=== PATIENT | male | born 1960 | race Caucasian/White ===

== ENCOUNTER 2018-01-21 13:05 | Observation (INO) | payer OTHER, SELFPAY ==
[2018-01-21] MEDS ORDERED: NA CHLORIDE 0.9% 1,000 ML ONE ×2 (13:59→15:37)
[2018-01-21] MEDS ORDERED: ALBUTEROL 2.5 MG/3 ML NEB SOL ONE (14:20)
[2018-01-21] MEDS ORDERED: METHYLPREDNISOLONE 125 MG INJ ONE (14:20)
[2018-01-21] MEDS ORDERED: AZITHROMYCIN 500 MG/250 ML BAG ONE (14:21)
[2018-01-21] MEDS ORDERED: CEFTRIAXONE/SWI 1gm 1 GM/10 ML SYR ONE ×2 (14:21→16:58)
[2018-01-21] MEDS ORDERED: FAMOTIDINE 20 MG/2 ML VIAL IV ONE (14:24)
[2018-01-21 14:32] LABS: Absolute Lymphocytes (CBC) 1.3 K/uL (0.7-4.9); Absolute Monocytes 1.4 K/uL (0.1-1.3); Absolute Neutrophil 8.1 K/uL (1.8-8.0); Basophils % 0.4 % (0-1.3); Eosinophils % 1.1 % (0-4.4); Hematocrit 43.9 % (39.6-49.0); Lymphocytes % 11.8 % (15.3-44.8); MCH 32.3 pg (27.0-35.0); MCV 92.5 fL (80-100); MPV 7.7 fL (7.6-11.3); Monocytes % 12.6 % (3.3-12.3); RBC Red Blood Cell Count 4.74 M/uL (4.33-5.43)
[2018-01-21 14:39] LABS: Protime INR 1.23
[2018-01-21 14:41] LABS: Potassium 4.2 mEq/L (3.6-5.0)
[2018-01-21 14:48] LABS: Bilirubin Direct 0.3 mg/dL (0-0.2); Bilirubin Total 1.5 mg/dL (0.3-1.2); Magnesium 1.7 mg/dL (1.8-2.5)
[2018-01-21 14:51] LABS: CKMB Creatine Kinase MB 4.8 ng/ml (0.3-4.0)
--- NOTE | 2018-01-21 15:01 | RAD REPORT ---
EXAM DESCRIPTION: RAD - Chest Single View - 01/21/2018 2:54 pm CLINICAL HISTORY: Chest pain. COMPARISON: 08/10/2017 FINDINGS: Portable technique limits examination quality. A minimal left pleural effusion is noted. Mild volume loss of the left lung is seen, similar to tab rative study. The heart is normal in size. No displaced fractures. IMPRESSION: Minimal left pleural.
--- NOTE | 2018-01-21 15:38 | EDPHYS ---
Physician Documentation [facility] Name: Ruslan Mclaughlin Age: 57 yrs Sex: Male : 1960 Arrival Date: 01/21/2018 Time: 13:12 Bed 23 Private MD: [facility] ED Physician Jason Mclaughlin HPI: 01/21 14:11 This 57 yrs old Male presents to ER via Ambulatory with complaints of huber Dizziness, Weakness, Vision Problem. 14:11 The patient presents with dizziness, generalized weakness, lightheadedness. Onset: The huber symptoms/episode began/occurred 3 day(s) ago. Context: occurred at an unknown location. Associated signs and symptoms: Pertinent positives: near-syncope. Severity of symptoms: At their worst the symptoms were mild moderate in the emergency department the symptoms are unchanged. Patient's baseline: Neuro: alert and fully oriented. The patient has not experienced similar symptoms in the past. Historical: - Allergies: 13:16 No Known Allergies; la1 - Home Meds: 16:50 metformin 1,000 mg oral tab 1 tab 2 times per day [Active]; lisinopril 20 mg Oral tab 1 tl3 tab once daily [Active]; Plavix 75 mg Oral tab 1 tab once daily [Active]; simvastatin 20 mg Oral tab 1 tab once daily [Active]; hydralazine 50 mg Oral tab 1 tab daily [Active]; Januvia 100 mg oral tab 1 tab once daily [Active]; Prilosec 40 mg Oral cpDR 1 cap once daily [Active]; - PMHx: 13:16 Diabetes - NIDDM; Hypertension; la1 - Immunization history:: Adult Immunizations up to date. - Social history:: Smoking status: Patient/guardian denies using tobacco, Patient uses alcohol, on a daily basis. - Family history:: not pertinent. ROS: 14:11 Constitutional: Negative for fever, chills, and weight loss, Eyes: Negative for injury, huber pain, redness, and discharge, ENT: Negative for injury, pain, and discharge, Neck: Negative for injury, pain, and swelling, Cardiovascular: Negative for chest pain, palpitations, and edema, Abdomen/GI: Negative for abdominal pain, nausea, vomiting, diarrhea, and constipation, Back: Negative for injury and pain, : Negative for injury, bleeding, discharge, and swelling, MS/Extremity: Negative for injury and deformity, Skin: Negative for injury, rash, and discoloration, Neuro: Negative for headache, weakness, numbness, tingling, and seizure, Psych: Negative for depression, anxiety, suicide ideation, homicidal ideation, and hallucinations, Allergy/Immunology: Negative for hives, rash, and allergies, Endocrine: Negative for neck swelling, polydipsia, polyuria, polyphagia, and marked weight changes. 14:11 Respiratory: Positive for cough, dyspnea on exertion, shortness of breath, wheezing, inspiratory, expiratory. 14:11 Abdomen/GI: Positive for 14:11 Abdomen/GI: Negative for abdominal pain, nausea and vomiting, black/tarry stool, rectal huber pain, rectal bleeding. Exam: 14:11 Constitutional: This is a well developed, well nourished patient who is awake, alert, huber and in no acute distress. Head/Face: Normocephalic, atraumatic. Eyes: Pupils equal round and reactive to light, extra-ocular motions intact. Lids and lashes normal. Conjunctiva and sclera are non-icteric and not injected. Cornea within normal limits. Periorbital areas with no swelling, redness, or edema. ENT: Nares patent. No nasal discharge, no septal abnormalities noted. Tympanic membranes are normal and external auditory canals are clear. Oropharynx with no redness, swelling, or masses, exudates, or evidence of obstruction, uvula midline. Mucous membranes moist. Neck: Trachea midline, no thyromegaly or masses palpated, and no cervical lymphadenopathy. Supple, full range of motion without nuchal rigidity, or vertebral point tenderness. No Meningismus. Chest/axilla: Normal chest wall appearance and motion. Nontender with no deformity. No lesions are appreciated. Cardiovascular: Regular rate and rhythm with a normal S1 and S2. No gallops, murmurs, or rubs. Normal PMI, no JVD. No pulse deficits. Abdomen/GI: Soft, non-tender, with normal bowel sounds. No distension or tympany. No guarding or rebound. No evidence of tenderness throughout. Back: No spinal tenderness. No costovertebral tenderness. Full range of motion. Male : Normal genitalia with no discharge or lesions. Skin: Warm, dry with normal turgor. Normal color with no rashes, no lesions, and no evidence of cellulitis. MS/ Extremity: Pulses equal, no cyanosis. Neurovascular intact. Full, normal range of motion. Neuro: Awake and alert, GCS 15, oriented to person, place, time, and situation. Cranial nerves II-XII grossly intact. Motor strength 5/5 in all extremities. Sensory grossly intact. Cerebellar exam normal. Normal gait. Psych: Awake, alert, with orientation to person, place and time. Behavior, mood, and affect are within normal limits. 14:11 Respiratory: mild respiratory distress is noted, Respirations: normal, Breath sounds: decreased breath sounds, rhonchi, wheezing: expiratory Vital Signs: 13:16 Pulse 92; Resp 16; Temp 98.4; Pulse Ox 100% on R/A; Weight 81.65 kg; Height 5 ft. 6 in. la1 (167.64 cm); 13:17 BP 91 / 66; la1 13:39 BP 109 / 73 Supine; Pulse 114; Pulse Ox 36% on R/A; tl3 13:39 BP 100 / 70 Sitting; Pulse 99; Pulse Ox 97% on R/A; tl3 13:39 BP 90 / 61 Standing; Pulse 63; Pulse Ox 97% on R/A; tl3 13:58 BP 86 / 82; Pulse 97; Resp 18; Pulse Ox 98% ; tl3 15:00 BP 98 / 72; Pulse 84; Resp 23; Pulse Ox 100% ; tl3 16:02 BP 106 / 71; Pulse 98; Resp 20; Pulse Ox 98% on R/A; tl3 13:16 Body Mass Index 29.05 (81.65 kg, 167.64 cm) la1 MDM: 13:49 Patient medically screened. [facility] 14:14 Data reviewed: vital signs, nurses notes, lab test result(s), EKG, radiologic studies, huber plain films. 01/21 14:11 Order name: Basic Metabolic Panel [facility] 01/21 14:11 Order name: BNP [facility] 01/21 14:11 Order name: CBC with Diff [facility] 01/21 14:11 Order name: Ckmb [facility] 01/21 14:11 Order name: CPK; Complete Time: 15:33 [facility] 01/21 14:11 Order name: LFT's; Complete Time: 15:33 [facility] 01/21 14:11 Order name: Magnesium; Complete Time: 15:33 [facility] 01/21 14:11 Order name: PT-INR; Complete Time: 15:33 [facility] 01/21 14:11 Order name: Ptt, Activated; Complete Time: 15:33 [facility] 01/21 14:11 Order name: Troponin (emerg Dept Use Only); Complete Time: 15:33 [facility] 01/21 14:11 Order name: Blood Culture Adult (2) [facility] 01/21 14:11 Order name: Procalcitonin; Complete Time: 15:33 [facility] 01/21 14:11 Order name: Lactate; Complete Time: 15:33 [facility] 01/21 14:12 Order name: Basic Metabolic Panel; Complete Time: 15:33 [facility] 01/21 14:11 Order name: XRAY Chest (1 view); Complete Time: 15:33 [facility] 01/21 14:11 Order name: EKG; Complete Time: 14:12 [facility] 01/21 14:12 Order name: BNP B-Type Natriuretic Peptide; Complete Time: 15:33 [facility] 01/21 14:12 Order name: CBC with Automated Diff; Complete Time: 15:33 [facility] 01/21 14:12 Order name: CKMB Creatine Kinase MB; Complete Time: 15:33 [facility] 01/21 14:29 Order name: TSH 01/21 15:43 Order name: Echo with Doppler [facility] 01/21 14:11 Order name: Cardiac monitoring; Complete Time: 14:52 [facility] 01/21 14:11 Order name: EKG - Nurse/Tech; Complete Time: 14:52 [facility] 01/21 14:11 Order name: IV Saline Lock; Complete Time: 14:52 [facility] 01/21 14:11 Order name: Labs collected and sent; Complete Time: 17:30 [facility] 01/21 14:11 Order name: O2 Per Protocol; Complete Time: 17:30 [facility] 01/21 14:11 Order name: O2 Sat Monitoring; Complete Time: 17:30 [facility] Administered Medications: 14:10 Drug: NS 0.9% 1000 ml Route: IV; Rate: 1 bolus; Site: right antecubital; Delivery: tl3 Primary tubing; 15:47 Follow up: IV Status: Completed infusion; IV Intake: 1000ml tl3 14:20 Drug: Pepcid 20 mg Route: IVP; Infused Over: 3 mins; Site: right antecubital; tl3 15:44 Follow up: Response: No adverse reaction tl3 14:25 Drug: SOLU-Medrol 125 mg Route: IVP; Infused Over: 3 mins; Site: right antecubital; tl3 15:45 Follow up: Response: No adverse reaction tl3 14:45 Drug: Rocephin - (cefTRIAXone) 2 grams {Note: IVP over 5 minutes.} Route: IVPB; Infused tl3 Over: 30 mins; Site: right antecubital; 14:50 Follow up: Response: No adverse reaction; IV Status: Completed infusion; IV Intake: [id number] 14:56 Drug: Albuterol - atroVENT (3:1) (2.5 mg - 0.5 mg) 3 ml Route: Nebulizer; tl3 15:44 Follow up: Response: No adverse reaction tl3 14:58 Drug: Zithromax 500 mg Route: IVPB; Infused Over: 1 hrs; Site: right antecubital; tl3 Delivery: Primary tubing; 15:55 Follow up: IV Status: Completed infusion; IV Intake: 500ml tl3 15:43 Drug: NS 0.9% 1000 ml Route: IV; Rate: 125 ml/hr; Site: right antecubital; tl3 15:59 Drug: Magnesium Sulfate 1 grams Route: IVPB; Infused Over: 1 hrs; Site: right tl3 antecubital; Delivery: Primary tubing; 17:29 Follow up: IV Status: Completed infusion; IV Intake: 100ml tl3 16:01 Not Given (Duplicate Order): NS 0.9% 1000 ml IV at 1 bolus Per protocol; 1000 mL bolus tl3 Point of Care Testing: Blood Glucose: 13:39 Blood Glucose: 146 mg/dL; tl3 Ranges: Critical Glucose Levels:Adult <50 mg/dl or >400 mg/dl <40 mg/dl or >180 mg/dl Disposition: 01/21/18 15:37 Hospitalization ordered by Anette Simpson for Inpatient Admission. Preliminary diagnosis are Weakness, Chronic obstructive pulmonary disease with (acute) exacerbation, Hypomagnesemia, Syncope and collapse - near, Type 2 diabetes mellitus, Pleural effusion in conditions classified elsewhere, Unspecified kidney failure. - Bed requested for Telemetry/MedSurg (Inpatient). - Status is Inpatient Admission. tl3 - Condition is Stable. - Problem is new. - Symptoms have improved. UTI on Admission? No Signatures: Dispatcher [employer] Jason Albert MD MD cha Attema, Lee RN RN la1 Lorraine Gifford RN RN tl3 Izzy Ching Corrections: (The following items were deleted from the chart) 16:50 16:05 Home Meds: unkown BP medication; tl3 tl3 16:50 16:05 Home Meds: Metformin Oral; tl3 tl3
--- NOTE | 2018-01-21 15:38 | ER ---
Nurse's Notes [facility] Name: Ruslan Mclaughlin Age: 57 yrs Sex: Male : 1960 Arrival Date: 01/21/2018 Time: 13:12 Bed 23 Private MD: Dontae Simpson Diagnosis: Weakness;Chronic obstructive pulmonary disease with (acute) exacerbation;Hypomagnesemia;Syncope and collapse-near;Type 2 diabetes mellitus;Pleural effusion in conditions classified elsewhere;Unspecified kidney failure Presentation: 01/21 13:15 Presenting complaint: Patient states: Fatigue for the last 3 days, dizziness and la1 blurred vision upon standing. No focal neurological deficits noted. Transition of care: patient was not received from another setting of care. Onset of symptoms was January 21, 2018. Initial Sepsis Screen: Does the patient meet any 2 criteria? No. Patient's initial sepsis screen is negative. Does the patient have a suspected source of infection? No. Patient's initial sepsis screen is negative. Care prior to arrival: None. 13:15 Method Of Arrival: Ambulatory la1 13:15 Acuity: GONZALO 2 la1 Historical: - Allergies: 13:16 No Known Allergies; la1 - Home Meds: 16:50 metformin 1,000 mg oral tab 1 tab 2 times per day [Active]; lisinopril 20 mg Oral tab 1 tl3 tab once daily [Active]; Plavix 75 mg Oral tab 1 tab once daily [Active]; simvastatin 20 mg Oral tab 1 tab once daily [Active]; hydralazine 50 mg Oral tab 1 tab daily [Active]; Januvia 100 mg oral tab 1 tab once daily [Active]; Prilosec 40 mg Oral cpDR 1 cap once daily [Active]; - PMHx: 13:16 Diabetes - NIDDM; Hypertension; la1 - Immunization history:: Adult Immunizations up to date. - Social history:: Smoking status: Patient/guardian denies using tobacco, Patient uses alcohol, on a daily basis. - Family history:: not pertinent. Screenin:39 Abuse screen: Denies threats or abuse. Nutritional screening: No deficits noted. tl3 Tuberculosis screening: No symptoms or risk factors identified. Fall Risk None identified. Assessment: 13:37 General: Appears uncomfortable, slender, well groomed, well developed, well nourished, tl3 Behavior is calm, cooperative, appropriate for age. Pain: Denies pain. Neuro: Level of Consciousness is awake, alert, obeys commands, Oriented to person, place, time, situation, Appropriate for age. Neuro: Reports dizziness, weakness since Tuesday. Cardiovascular: Heart tones S1 S2 present Capillary refill < 3 seconds in bilateral fingers. Respiratory: Airway is patent Trachea midline Respiratory effort is even, unlabored, Respiratory pattern is regular, symmetrical. GI: No signs and/or symptoms were reported involving the gastrointestinal system. : No signs and/or symptoms were reported regarding the genitourinary system. EENT: No signs and/or symptoms were reported regarding the EENT system. Derm: No signs and/or symptoms reported regarding the dermatologic system. Musculoskeletal: No signs and/or symptoms reported regarding the musculoskeletal system. 13:37 GI: Abdomen is round non-distended, Bowel sounds present X 4 quads. hyperactive in tl3 right upper quadrant, left upper quadrant, right lower quadrant and left lower quadrant. 15:00 Reassessment: No changes from previously documented assessment. Patient and/or family tl3 updated on plan of care and expected duration. Pain level reassessed. Patient is alert, oriented x 3, equal unlabored respirations, skin warm/dry/pink. pt lying quietly, in no acute distress, continuing to monitor BP. 16:02 Reassessment: Patient appears in no apparent distress at this time. No changes from tl3 previously documented assessment. Patient and/or family updated on plan of care and expected duration. Pain level reassessed. Patient is alert, oriented x 3, equal unlabored respirations, skin warm/dry/pink. pt resting states that he feels a little better. 16:05 Reassessment: Dr Simpson at bedside discussing POC with pt. tl3 Vital Signs: 13:16 Pulse 92; Resp 16; Temp 98.4; Pulse Ox 100% on R/A; Weight 81.65 kg; Height 5 ft. 6 in. la1 (167.64 cm); 13:17 BP 91 / 66; la1 13:39 BP 109 / 73 Supine; Pulse 114; Pulse Ox 36% on R/A; tl3 13:39 BP 100 / 70 Sitting; Pulse 99; Pulse Ox 97% on R/A; tl3 13:39 BP 90 / 61 Standing; Pulse 63; Pulse Ox 97% on R/A; tl3 13:58 BP 86 / 82; Pulse 97; Resp 18; Pulse Ox 98% ; tl3 15:00 BP 98 / 72; Pulse 84; Resp 23; Pulse Ox 100% ; tl3 16:02 BP 106 / 71; Pulse 98; Resp 20; Pulse Ox 98% on R/A; tl3 13:16 Body Mass Index 29.05 (81.65 kg, 167.64 cm) la1 ED Course: 13:12 Patient arrived in ED. mr 13:12 Dontae Simpson, DO is Private Physician. mr 13:15 Triage completed. la1 13:16 Arm band placed on right wrist. la1 13:37 Lorraine Gifford, RN is Primary Nurse. tl3 13:39 Patient has correct armband on for positive identification. Bed in low position. Call tl3 light in reach. Side rails up X 1. 13:39 No provider procedures requiring assistance completed. Inserted saline lock: 20 gauge tl3 in right antecubital area, using aseptic technique. 13:49 Jason Mclaughlin MD is Attending Physician. huber 13:56 equipment monitor phototypesetting on. Pulse ox on. NIBP on. tl3 14:54 X-ray completed. Portable x-ray completed in exam room. Patient tolerated procedure kp1 well. 14:55 XRAY Chest (1 view) In Process Unspecified. EDMS 15:36 Anette Simpson MD is Hospitalizing Provider. huber 17:31 Patient admitted, IV remains in place. tl3 Administered Medications: 14:10 Drug: NS 0.9% 1000 ml Route: IV; Rate: 1 bolus; Site: right antecubital; Delivery: tl3 Primary tubing; 15:47 Follow up: IV Status: Completed infusion; IV Intake: 1000ml tl3 14:20 Drug: Pepcid 20 mg Route: IVP; Infused Over: 3 mins; Site: right antecubital; tl3 15:44 Follow up: Response: No adverse reaction tl3 14:25 Drug: SOLU-Medrol 125 mg Route: IVP; Infused Over: 3 mins; Site: right antecubital; tl3 15:45 Follow up: Response: No adverse reaction tl3 14:45 Drug: Rocephin - (cefTRIAXone) 2 grams {Note: IVP over 5 minutes.} Route: IVPB; Infused tl3 Over: 30 mins; Site: right antecubital; 14:50 Follow up: Response: No adverse reaction; IV Status: Completed infusion; IV Intake: [id number] 14:56 Drug: Albuterol - atroVENT (3:1) (2.5 mg - 0.5 mg) 3 ml Route: Nebulizer; tl3 15:44 Follow up: Response: No adverse reaction tl3 14:58 Drug: Zithromax 500 mg Route: IVPB; Infused Over: 1 hrs; Site: right antecubital; tl3 Delivery: Primary tubing; 15:55 Follow up: IV Status: Completed infusion; IV Intake: 500ml tl3 15:43 Drug: NS 0.9% 1000 ml Route: IV; Rate: 125 ml/hr; Site: right antecubital; tl3 15:59 Drug: Magnesium Sulfate 1 grams Route: IVPB; Infused Over: 1 hrs; Site: right tl3 antecubital; Delivery: Primary tubing; 17:29 Follow up: IV Status: Completed infusion; IV Intake: 100ml tl3 16:01 Not Given (Duplicate Order): NS 0.9% 1000 ml IV at 1 bolus Per protocol; 1000 mL bolus tl3 Point of Care Testing: Blood Glucose: 13:39 Blood Glucose: 146 mg/dL; tl3 Ranges: Intake: 14:50 IV: 20ml; Total: 20ml. tl3 15:47 IV: 1000ml; Total: 1020ml. tl3 15:55 IV: 500ml; Total: 1520ml. tl3 17:29 IV: 100ml; Total: 1620ml. tl3 Outcome: 15:37 Decision to Hospitalize by Provider. huber 17:26 Patient left the ED. tl3 17:30 Admitted to Tele accompanied by tech, via wheelchair, with chart, Report called to Jany Montano RN 17:30 Condition: stable 17:30 Instructed on the need for admit. Signatures: Dispatcher [employer] Jason Albert MD MD cha Rivera, Maria mr Attema, Lee, RN RN la1 Leslie Dailey kp1 Lorraien Gifford RN RN tl3 Corrections: (The following items were deleted from the chart) 13:17 13:15 Acuity: GONZALO 3 la1 la1 14:57 14:25 SOLU-Medrol 125 mg IVP in left antecubital over 3 mins tl3 tl3 14:58 14:20 Pepcid 20 mg IVP in left antecubital over 3 mins tl3 tl3 16:01 15:45 Response: No adverse reaction tl3 tl3 16:50 16:05 Home Meds: unkown BP medication; tl3 tl3 16:50 16:05 Home Meds: Metformin Oral; tl3 tl3
[2018-01-21] MEDS ORDERED: MAGNESIUM SULFATE 1 gm IVPB 1 GM/100 ML BAG IV ONE (15:55)
[2018-01-21] MEDS ORDERED: ACETAMINOPHEN 500 MG TAB PO PRN (16:12)
[2018-01-21] MEDS ORDERED: ONDANSETRON 4 MG/2 ML VIAL IV PRN (16:12)
[2018-01-21] MEDS: INSULIN -REGULAR HUMAN 50 UNIT/0.5 ML ML SQ SCH ×2 (16:30→21:00)
--- NOTE | 2018-01-21 17:33 | P.HP ---
Certification for Inpatient Patient admitted to: Inpatient With expected LOS: <2 Midnights Patient will require the following post-hospital care: None Practitioner: I am a practitioner with admitting privileges, knowledge of patient current condition, hospital course, and medical plan of care. Services: Services provided to patient in accordance with Admission requirements found in Title 42 Section 412.3 of the Code of Federal Regulations Patient History Date of Service: 01/21/18 Primary Care Provider: Dr Simpson Reason for admission: Weakness History of Present Illness: This is a 57-year-old male with significant past medical history of diabetes type 2, hypertension, CAD, alcohol abuse who presented to the ED complaining of weakness that has been going on for about 3 days. Patient stated that his weakness started about 3 days and has gotten progressively worse where today he was so weak that he felt dizzy and almost lost his balance and had a fall. Patient stated that he also had some blurred vision and thus he got into the ER. Patient denies having any fever chills nausea vomiting shortness of breath. Patient had similar episode in the past where he was admitted in 2014 and was found to have generalized weak weakness which resolved after IV fluids and electrolyte replacement and then patient was discharged home. Patient does have a primary care provider Dr. Simpson who he sees outside and states that he has been referred over to a fruit press operator due to a blockage in his left side artery. Allergies No Known Allergies Allergy (Unverified 08/12/16 20:08) Home Medications: Aspirin [Aspirin EC 81 MG] 81 mg PO DAILY #90 tablet. 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 - Family History Mother -: Diabetes, Cancer (Lung cancer) Sister -: Diabetes Father -: Liver disease - Social History Alcohol use: Yes CD- Drugs: Yes Caffeine use: No Review of Systems General: As per HPI Physical Examination - Physical Exam General: Alert, In no apparent distress, Oriented x3, Cachectic HEENT: Atraumatic Neck: Supple Respiratory: Clear to auscultation bilaterally, Normal air movement Cardiovascular: Normal S1 S2, Irregular heart rate/rhythm Gastrointestinal: Normal bowel sounds, Soft and benign, Non-distended, No tenderness Musculoskeletal: No tenderness Integumentary: No rashes Neurological: Normal speech, Normal tone, Abnormal gait, Abnormal strength Lymphatics: No axilla or inguinal lymphadenopathy - Studies Laboratory Data (last 24 hrs) 01/21/18 14:00: PT 14.6 H, INR 1.23, APTT 27.7 01/21/18 14:00: WBC 11.0 H, Hgb 15.3, Hct 43.9, Plt Count 223 01/21/18 14:00: B-Natriuretic Peptide 66 01/21/18 14:00: Sodium 132 L, Potassium 4.2, BUN 27 H, Creatinine 1.51 H, Glucose 153 H, Magnesium 1.7 L, Total Bilirubin 1.5 H, AST 31, ALT 36, Alkaline Phosphatase 59 Assessment and Plan - Problems (Diagnosis) (1) Generalized weakness Current Visit: Yes Status: Acute Plan: Generalized Weakness that is progressively getting worse. Most likely 2.2 to alcohol abuse vs Afib -PT consulted -Fall precautions -Repeat Lab work in AM (2) Afib Current Visit: Yes Status: Acute Plan: ? New onset Afib -Started on Metoprolol 12.5 BID given the low BP in the ER -Currently on ASA and plavix. High risk for falls due to weakness and alcohol abuse. Will continue on ASA for now. -ECHO and cardiology consulted. Qualifiers: Atrial fibrillation type: paroxysmal Qualified Code(s): I48.0 - Paroxysmal atrial fibrillation (3) Alcohol use Onset Date: 08/13/16 Current Visit: No Status: Chronic Plan: Last drink Last night. Drink 2 pack of 6 a day -Ativan PRN for WD (4) ARF (acute renal failure) Current Visit: Yes Status: Acute Plan: ARF with elevated BUN/CR most likely 2.2 to dehydration -IV fluids -Avoid nephrotoxic agent Qualifiers: Acute renal failure type: unspecified Qualified Code(s): N17.9 - Acute kidney failure, unspecified (5) Diabetes mellitus Onset Date: 08/13/16 Current Visit: No Status: Chronic Plan: ISs Qualifiers: Diabetes mellitus type: type 2 Diabetes mellitus senior care insulin use: without roasterman use Diabetes mellitus complication status: without complication Qualified Code(s): E11.9 - Type 2 diabetes mellitus without complications (6) Hypertension Onset Date: 08/13/16 Current Visit: No Status: Chronic Qualifiers: Hypertension type: essential hypertension Qualified Code(s): I10 - Essential (primary) hypertension Discharge Plan: Home Plan to discharge in: 48 Hours - Advance Directives Does patient have a Living Will: No Does patient have a Durable POA for Healthcare: No - Code Status/Comfort Care Code Status Assessed: Yes Critical Care: No
[2018-01-21 18:02] VITALS: BMI 28.3
[2018-01-21] MEDS: NA CHLORIDE 0.9% 1,000 ML IV SCH (18:03)
[2018-01-21] MEDS: METOPROLOL TAR 25 MG TAB PO SCH (18:30)
[2018-01-21] MEDS ORDERED: LISINOPRIL 20 MG TAB PO SCH (21:00)
[2018-01-21 21:31] LABS: Urine Appearance CLEAR; Urine Bilirubin NEGATIVE (NEG); Urine Blood NEGATIVE (NEG); Urine Color YELLOW; Urine Glucose NEGATIVE (NEG); Urine Protein TRACE (NEG); Urine Urobilinogen 0.2 mg/dL (0.2-1.0); Urine pH 5.5 (5.0-7.0)
[2018-01-21 21:32] LABS: Urine Microscopic Reflex ORDER UMIC
[2018-01-21 21:52] LABS: Urine Bacteria <20 /HPF (NONE SEEN); Urine Culture Reflex Order NOT NEEDED; Urine RBC <5 /HPF (NONE SEEN)
[2018-01-21] MEDS: ATORVASTATIN 10 MG TAB PO SCH (21:55)
[2018-01-21] MEDS: HYDRALAZINE HCL 25 MG TABLET PO SCH (21:55)
[2018-01-22] MEDS: NA CHLORIDE 0.9% 1,000 ML IV SCH ×3 (03:51→23:00)
[2018-01-22 05:56] LABS: Absolute Lymphocytes (CBC) 0.5 K/uL (0.7-4.9); Absolute Monocytes 0.5 K/uL (0.1-1.3); Absolute Neutrophil 3.4 K/uL (1.8-8.0); Basophils % 0.1 % (0-1.3); Eosinophils % 0.1 % (0-4.4); Hematocrit 38.8 % (39.6-49.0); Lymphocytes % 11.5 % (15.3-44.8); MCH 31.8 pg (27.0-35.0); MCV 93.8 fL (80-100); MPV 8.1 fL (7.6-11.3); Monocytes % 11.6 % (3.3-12.3); RBC Red Blood Cell Count 4.14 M/uL (4.33-5.43)
[2018-01-22 06:07] LABS: Albumin 2.9 g/dL (3.2-5.5); Bilirubin Total 0.7 mg/dL (0.3-1.2); Magnesium 1.9 mg/dL (1.8-2.5); Phosphorus 2.6 mg/dL (2.5-4.3); Potassium 4.5 mEq/L (3.6-5.0); Protein, Total 6.2 g/dL (6.0-8.3)
[2018-01-22] MEDS: METOPROLOL TAR 25 MG TAB PO SCH ×2 (06:36→17:52)
[2018-01-22] MEDS: INSULIN -REGULAR HUMAN 50 UNIT/0.5 ML ML SQ SCH ×4 (07:30→21:00)
[2018-01-22] MEDS ORDERED: CEFTRIAXONE/SWI 1gm 1 GM/10 ML SYR IV SCH (09:00)
[2018-01-22] MEDS ORDERED: CEFTRIAXONE 1 GM/NS 50 ML 1 GM/50 ML BAG IV SCH (09:00)
[2018-01-22] MEDS: ASPIRIN EC 81 MG TAB PO SCH (09:14)
[2018-01-22] MEDS: HYDRALAZINE HCL 25 MG TABLET PO SCH ×2 (09:14→20:45)
[2018-01-22] MEDS: CLOPIDOGREL 75 MG TABLET PO SCH (09:14)
[2018-01-22] MEDS: PANTOPRAZOLE 40MG TABLET PO SCH (09:14)
--- NOTE | 2018-01-22 09:51 | RAD REPORT ---
EXAM DESCRIPTION: US - Liver Only - 01/22/2018 9:40 am CLINICAL HISTORY: Elevated bilirubin COMPARISON: None. TECHNIQUE: Sonographic evaluation of the right upper quadrant was performed as a dedicated liver ult rasound study. FINDINGS: Liver is approximately 14 cm in maximum dimension. No capsular nodularity or focal liver l esion identifiable. Liver echogenicity is within range of normal. No significant fatty infiltration i s identifiable. No intrahepatic biliary dilatation. The gallbladder and common bile duct show no susp icious finding. IMPRESSION: Liver ultrasound showing no significant or suspicious finding.
--- NOTE | 2018-01-22 10:53 | P.PN ---
Subjective Date of Service: 01/22/18 Primary Care Provider: Dr Simpson Chief Complaint: Weakness Pt seen and examined at bedside with RN. Chart reviewed. Case D/W with cardiology. No c/o overnight. states he feels much better than before Review of Systems General: As per HPI Physical Examination - Vital Signs Temperature: 97.8 F Blood Pressure: 125/79 Pulse: 63 Respirations: 18 Pulse Ox (%): 93 - Physical Exam General: Alert, In no apparent distress HEENT: Atraumatic, PERRLA, EOMI Neck: Supple, JVD not distended Respiratory: Clear to auscultation bilaterally, Normal air movement Cardiovascular: Regular rate/rhythm, Normal S1 S2 Gastrointestinal: Normal bowel sounds, No tenderness Musculoskeletal: No tenderness Integumentary: No rashes Neurological: Normal speech, Normal tone, Normal affect Lymphatics: No axilla or inguinal lymphadenopathy - Studies Laboratory Data (last 24 hrs) 01/21/18 14:00: PT 14.6 H, INR 1.23, APTT 27.7 01/21/18 14:00: WBC 11.0 H, Hgb 15.3, Hct 43.9, Plt Count 223 01/21/18 14:00: B-Natriuretic Peptide 66 01/21/18 14:00: Sodium 132 L, Potassium 4.2, BUN 27 H, Creatinine 1.51 H, Glucose 153 H, Magnesium 1.7 L, Total Bilirubin 1.5 H, AST 31, ALT 36, Alkaline Phosphatase 59 Medications List Reviewed: Yes Assessment & Plan - Problems (Diagnosis) (1) Generalized weakness Current Visit: Yes Status: Acute Plan: Generalized Weakness that is progressively getting worse. Most likely 2.2 to alcohol abuse vs Afib -PT consulted -Fall precautions -Repeat Lab work in AM (2) Afib Current Visit: Yes Status: Acute Plan: New onset Afib -Started on Metoprolol 12.5 BID given the low BP in the ER -Currently on ASA and plavix. High risk for falls due to weakness and alcohol abuse. -ECHO Pending -Cardiology consulted. Appreciate Reccs -Stress test -Carotid U/S -ECHO -Low dose BB and ASA/Plavix for now till echo and stress test. Possible switch to xarelto after. Qualifiers: Atrial fibrillation type: paroxysmal Qualified Code(s): I48.0 - Paroxysmal atrial fibrillation (3) Alcohol use Onset Date: 08/13/16 Current Visit: No Status: Chronic Plan: Last drink Last night. Drink 2 pack of 6 a day -Ativan PRN for WD (4) ARF (acute renal failure) Current Visit: Yes Status: Acute Plan: ARF with elevated BUN/CR most likely 2.2 to dehydration. Improved now -IV fluids -Avoid nephrotoxic agent Qualifiers: Acute renal failure type: unspecified Qualified Code(s): N17.9 - Acute kidney failure, unspecified (5) Diabetes mellitus Onset Date: 08/13/16 Current Visit: No Status: Chronic Plan: ISs Qualifiers: Diabetes mellitus type: type 2 Diabetes mellitus computer terminal operator insulin use: without computer terminal operator use Diabetes mellitus complication status: without complication Qualified Code(s): E11.9 - Type 2 diabetes mellitus without complications (6) Hypertension Onset Date: 08/13/16 Current Visit: No Status: Chronic Qualifiers: Hypertension type: essential hypertension Qualified Code(s): I10 - Essential (primary) hypertension
--- NOTE | 2018-01-22 15:22 | RAD REPORT ---
EXAM DESCRIPTION: INOCENTE - HUNTER - 01/22/2018 2:41 pm CLINICAL HISTORY: Carotid stenosis COMPARISON: Carotid ultrasound July 2016 TECHNIQUE: Real-time sonographic evaluation of both carotid systems was performed. Doppler interroga tion was performed with waveform tracing bilaterally. FINDINGS: Normal high resistance waveforms are noted in both external carotid arteries. The common c arotid arteries and internal carotid arteries show normal low resistance waveforms. No blood flow demonstrated in the right internal carotid artery. Occlusion or near occlusion has been previously detailed. Left common and internal carotid arteries show mild plaquing changes with no si gnificant luminal narrowing. Peak systolic and end diastolic velocity values and the ICA/CCA ratios a re in the non-hemodynamically significant range. Antegrade flow seen in both vertebral arteries. Velocity values and ratios were recorded and are retained in the patient's imaging records. IMPRESSION: Occluded right internal carotid artery matching the 2016 study. Elsewhere there no significant atherosclerotic change or luminal narrowing. No evidence of a left-sided hemodynamically significant stenosis.
--- NOTE | 2018-01-22 16:10 | EKG ---
Test Date: 2018-01-21 Test Time: 14:27:21 Secretary To The Vice President: JOEL MEASUREMENT RESULTS: Intervals: Rate: 84 ND: QRSD: 100 QT: 378 QTc: 446 [place]: P: ND: QRS: -20 T: 70 INTERPRETIVE STATEMENTS: Atrial fibrillation Abnormal ECG Compared to ECG 01/21/2018 14:23:27 Left ventricular hypertrophy no longer present ST (T wave) deviation no longer present Myocardial infarct finding no longer present Electronically Signed On 01-22-18 16:10:07 CDT by Dennys Belle
--- NOTE | 2018-01-22 16:11 | EKG ---
Test Date: 2018-01-21 Test Time: 14:23:27 Classics Professor: JOEL MEASUREMENT RESULTS: Intervals: Rate: 83 KS: QRSD: 90 QT: 374 QTc: 439 [place]: P: KS: QRS: -24 T: -25 INTERPRETIVE STATEMENTS: Atrial fibrillation with a competing junctional pacemaker Voltage criteria for left ventricular hypertrophy Abnormal ECG Compared to ECG 08/12/2016 17:09:28 Left ventricular hypertrophy now present Sinus rhythm no longer present Left-axis deviation no longer present Electronically Signed On 01-22-18 16:11:10 CDT by Dennys Belle
[2018-01-22 18:13] VITALS: O2SAT 97
[2018-01-22] MEDS: ATORVASTATIN 10 MG TAB PO SCH (20:45)
[2018-01-23] MEDS: NA CHLORIDE 0.9% 1,000 ML IV SCH ×2 (00:15→10:57)
--- NOTE | 2018-01-23 00:42 | CON ---
Date of Consultation: 01/22/2018 Reason For Consultation: Atrial fibrillation, near-syncope, dizziness, and weakness. History Of Present Illness: Mr. Mclaughlin is a 57-year-old male who has had a history of diabetes, hy pertension, dyslipidemia, gastroesophageal reflux disease. Apparently, had a history of cerebrovascu lar disease. Dr. Alonso Simpson has been following and has recommended that we see him as an outpatien t. He came in with near syncope, dizzy, weak, had a lot of blurry vision, has had recent fevers and chills. He was noted to be in paroxysmal atrial fibrillation. He is asymptomatic now after hydratio n. He is in normal rhythm. Past Medical History: Otherwise stated earlier. Allergies: NONE. Review of Systems: Negative. Social History: Negative. Family History: Noncontributory. Medications: Aspirin, Protonix, Plavix, Lipitor, hydralazine, lisinopril, and metformin. Physical Examination: Vital Signs: Stable, afebrile. Sinus rhythm. No complaint. HEENT: Negative. Neck: Supple with no bruit. Chest: Clear to auscultation and percussion. Cardiac: Reveals a regular rhythm and rate without any murmurs, gallops, or rubs. Abdomen: Benign. Extremities: Reveal no clubbing, cyanosis, or edema. Imaging: His EKG initially showed atrial fibrillation. Laboratory Data: Mag was 1.5, blood glucose 230. Creatinine is 1.5, now is 1.0 after hydration. Impression And Plan: Mr. Mclaughlin may have had a slight viral syndrome with some fevers and chills a nd may have gotten dehydrated. His creatinine is 1.5, it is now 1.0, that may have dropped his blood pressure, and caused some atrial fibrillation, and has near syncope. He has had a history of cerebr ovascular disease by some carotid Doppler that is unavailable to me and I think he needs to have an e chocardiogram and Lexiscan and a carotid Doppler to evaluate all his symptoms. His blood pressure is well controlled. His dyslipidemia is well controlled. His gastroesophageal reflux disease is well controlled. His blood glucose is 230. He is on metformin. We may have to change his hydralazine an d lisinopril and maybe put him on a low-dose beta-rowan instead of one of those medications. I danisha l discuss the case further with Dr. Simpson after the testing is done. ADENIKE/LISA Voice ID: [id number] Report ID: [id number]
[2018-01-23] MEDS: METOPROLOL TAR 25 MG TAB PO SCH (06:00)
[2018-01-23 06:45] LABS: Absolute Lymphocytes (CBC) 0.8 K/uL (0.7-4.9); Absolute Monocytes 0.6 K/uL (0.1-1.3); Absolute Neutrophil 5.4 K/uL (1.8-8.0); Basophils % 0.3 % (0-1.3); Eosinophils % 3.6 % (0-4.4); Hematocrit 35.7 % (39.6-49.0); Lymphocytes % 10.8 % (15.3-44.8); MCH 32.6 pg (27.0-35.0); MCV 92.8 fL (80-100); MPV 7.3 fL (7.6-11.3); Monocytes % 8.7 % (3.3-12.3); RBC Red Blood Cell Count 3.85 M/uL (4.33-5.43)
[2018-01-23] MEDS: INSULIN -REGULAR HUMAN 50 UNIT/0.5 ML ML SQ SCH ×2 (07:30→11:30)
[2018-01-23 07:37] LABS: Albumin 3.1 g/dL (3.2-5.5); Bilirubin Total 0.7 mg/dL (0.3-1.2); Potassium 4.3 mEq/L (3.6-5.0); Protein, Total 6.2 g/dL (6.0-8.3)
[2018-01-23] MEDS ORDERED: REGADENOSON 0.4 MG/5 ML SYR IV ONE (08:38)
[2018-01-23] MEDS: HYDRALAZINE HCL 25 MG TABLET PO SCH (09:00)
--- NOTE | 2018-01-23 10:06 | RAD REPORT ---
EXAM DESCRIPTION: RAD - Chest Pa And Lat (2 Views) - 01/23/2018 8:38 am CLINICAL HISTORY: Chest pain, shortness of breath COMPARISON: January 21 TECHNIQUE: PA and lateral views of the chest were obtained. FINDINGS: The lungs are underinflated. There is patchy opacification in the mid and upper left lung field suspicious for a left upper lobe pneumonia. No other acute lung parenchymal finding. Heart si ze is normal and central vasculature is within normal limits. No pleural effusion or pneumothorax se en. No acute bony finding noted. No aortic abnormality. IMPRESSION: Small or mild upper lobe pneumonia findings. Continued follow-up is needed to assure co mplete clearing. If the patient has no findings for pneumonia, CT chest imaging may be needed to evaluate for possible mass.
--- NOTE | 2018-01-23 10:49 | RAD REPORT ---
EXAM DESCRIPTION: NM - Rest Stress Cardiac Imaging - 01/23/2018 10:29 am CLINICAL HISTORY: Chest pain COMPARISON: None. TECHNIQUE: The patient was administered 11 mCi of Tc 99m Sestamibi prior to resting SPECT imaging of the heart. The patient was then administered 30.1 mCi of Tc 99m Sestamibi following exercise or phar macologic stress. Multiplanar SPECT images were reviewed. FINDINGS: The end diastolic volume is 82 ml, the end systolic volume is 49 ml, and the ejection frac tion is 41 %. Large fixed defect is present along the inferior wall from base to apex favored to be scarring or att enuation artifact. No stress-induced ischemic changes are identifiable. No other areas of scarring. IMPRESSION: No stress-induced ischemia. Large fixed defect inferior wall from base to apex. This is favored to be scarring but is potentially prominent diaphragmatic attenuation artifact. Ventricular volumes are normal range but ejection fraction is below normal at 41%.
--- NOTE | 2018-01-23 10:50 | ECHO ---
HEIGHT: 5 ft 6 in WEIGHT: 175 lb 11.2 oz DATE OF STUDY: 01/23/[address]: Jason Mclaughlin MD 2-DIMENSIONAL: YES M.MODE: YES DOPPLER: YES COLOR FLOW: YES TDS: NO PORTABLE: NO DEFINITY: NO BUBBLE STUDY: NO DIAGNOSIS: HYPOTENSION CARDIAC HISTORY: CATHERIZATION: NO SURGERY: NO PROSTHETIC VALVE: NO PACEMAKER: NO MEASUREMENTS (cm) DIASTOLIC (NORMALS) SYSTOLIC (NORMALS) IVSd 1.4 (0.6-1.2) LA Diam 3.7 (1.9-4.0) LVEF 58% LVIDd 4.2 (3.5-5.7) LVIDs 3.0 (2.0-3.5) %FS 30% LVPWd 1.3 (0.6-1.2) Ao Diam 2.7 (2.0-3.7) 2 DIMENSIONAL ASSESSMENT: RIGHT ATRIUM: NORMAL LEFT ATRIUM: NORMAL RIGHT VENTRICLE: NORMAL LEFT VENTRICLE: LEFT VENTRICULAR HYPERTROPHY TRICUSPID VALVE: NORMAL MITRAL VALVE: MITRAL ANNULAR CALCIFICATION PULMONIC VALVE: NORMAL AORTIC VALVE: SCLEROSIS PERICARDIAL EFFUSION: NONE AORTIC ROOT: NORMAL LEFT VENTRICULAR WALL MOTION: NORMAL. DOPPLER/COLOR FLOW: MILD AORTIC, MITRAL AND TRICUSPID REGURGITATION. NO AORTIC STENOSIS. NORMAL RIGHT VENTRICULAR SYSTOLIC PRESSURE. COMMENTS: NORMAL LEFT VENTRICULAR EJECTION FRACTION. LEFT VENTRICULAR HYPERTROPHY. MITRAL ANNULAR CALCIFICATION. AORTIC SCLEROSIS WITH NO AORTIC STENOSIS. MILD AORTIC, MITRAL AND TRICUSPID REGURGITATION. ATRIALFIBRILLATION. TECHNOLOGIST: DAVE CAIN
[2018-01-23] MEDS: CLOPIDOGREL 75 MG TABLET PO SCH (10:57)
[2018-01-23] MEDS: PANTOPRAZOLE 40MG TABLET PO SCH (10:57)
[2018-01-23] MEDS: ASPIRIN EC 81 MG TAB PO SCH (10:57)
--- NOTE | 2018-01-23 11:02 | TREADPHA ---
DX: NEAR SYNCOPE Date of Study: 01/23/18 Ht: 5' 6 " Wt: 175 lb 11.2 oz Consulting Physician: DENZEL MEDICATIONS: TYLENOL, ASPIRIN, LIPITOR, PLAVIX, APRESOLINE, NOVOLIN-R, LOPRESSOR, ZOFRAN, PROTONIX HISTORY: 57 YEAR OLD MALE HERE FOR NEAR SYNCOPE, HISTORY OF DIABETES AND HYPERTENSION PHYSICIAL EXAMINATION: RESTING B.P.: 144/108 RESTING H.R.: 95 RESTING EKG: ATRIAL FIBRILLATION PROTOCOL: LEXISCAN EXERCISE TIME: 3:30 B.P. AT [facility]AK STRESS: 136/98 IMPRESSION: LEXISCAN STRESS TEST PERFORMED. CARDIOLITE INJECTED. PER PROTOCOL. NO PREMATURE VENTRICULAR COMPLEXES NOTED. DENIES ANY PAIN. SEE NUCLEAR MEDICINE REPORT. NON DIAGNOSTIC EKG WITH LEXISCAN STRESS.
--- NOTE | 2018-01-23 12:22 | RAD REPORT ---
EXAM DESCRIPTION: CT - Chest For Pe Angio - 01/23/2018 11:51 am CLINICAL HISTORY: Chest pain COMPARISON: January 23, 2018 chest x-ray TECHNIQUE: Dynamically enhanced axial 3 mm thick images of the chest were obtained during administra tion of <100> mL Isovue 370 IV contrast. Coronal and oblique reconstruction images were generated and reviewed. Exam utilizes a protocol for optimal evaluation of pulmonary arterial tree. All CT scans are performed using dose optimization technique as appropriate and may include automated exposure control or mA/KV adjustment according to patient size. FINDINGS: A pulmonary embolus is not seen. A thoracic aortic aneurysm is not noted. A pleural effusion is not seen. A pericardial effusion is not seen. Left upper lobe consolidation measures 5 centimeters. IMPRESSION: Negative for a pulmonary embolism. 5 centimeter left upper lobe consolidation consistent with pneumonia. This should be followed with ch est x-rays into is clear to help exclude a post obstructive process/underlying mass
--- NOTE | 2018-01-23 15:32 | P.DS ---
Admission Date: 01/21/18 Discharge Date: 01/23/18 Primary Care Provider: Dr. Simpson Disposition: ROUTINE DISCHARGE Discharge Condition: GOOD Reason for Admission: Weakness Consultations: Cardiology-Dr. Kelsey Procedures: Cardiac Stress test: No stress-induced ischemia noted. Ejection fraction 41% Echocardiogram shows ejection fraction 58%. Carotid Doppler shows total occlusion of right internal carotid artery this matches from 2016. No significant stenosis to the left side. CT chest shows no pulmonary embolism. Left upper lobe pneumonia noted. - Problems (1) Atrial fibrillation Current Visit: Yes Status: Acute Qualifiers: Atrial fibrillation type: chronic Qualified Code(s): I48.2 - Chronic atrial fibrillation (2) COPD (chronic obstructive pulmonary disease) Current Visit: Yes Status: Chronic Qualifiers: COPD type: chronic bronchitis Chronic bronchitis type: unspecified Qualified Code(s): J42 - Unspecified chronic bronchitis (3) History of tobacco use Current Visit: Yes Status: Chronic (4) Carotid arterial disease Current Visit: No Status: Chronic Qualifiers: Laterality: right Qualified Code(s): I77.9 - Disorder of arteries and arterioles, unspecified (5) Hyperlipidemia Current Visit: No Status: Chronic Qualifiers: Hyperlipidemia type: mixed hyperlipidemia Qualified Code(s): E78.2 - Mixed hyperlipidemia (6) Pneumonia Onset Date: 08/13/16 Current Visit: No Status: Acute Qualifiers: Pneumonia type: due to unspecified organism Laterality: left Lung location: upper lobe of lung Qualified Code(s): J18.1 - Lobar pneumonia, unspecified organism (7) Diabetes mellitus Onset Date: 08/13/16 Current Visit: No Status: Chronic Qualifiers: Diabetes mellitus type: type 2 Diabetes mellitus terminal operator insulin use: without shelter use Diabetes mellitus complication status: without complication Qualified Code(s): E11.9 - Type 2 diabetes mellitus without complications (8) Hypertension Onset Date: 08/13/16 Current Visit: No Status: Chronic Qualifiers: Hypertension type: essential hypertension Qualified Code(s): I10 - Essential (primary) hypertension (9) GERD (gastroesophageal reflux disease) Current Visit: Yes Status: Chronic Qualifiers: Esophagitis presence: esophagitis presence not specified Qualified Code(s) : K21.9 - Gastro-esophageal reflux disease without esophagitis Brief History of Present Illness: 57-year-old male presented to emergency room with near syncopal episode and fatigue. The patient was evaluated in the emergency room. He was found to have atrial fibrillation. This was new onset. The patient has underlying history of carotid arterial disease, hypertension, diabetes, hyperlipidemia and GERD. The patient was admitted for further evaluation. Hospital Course: Patient presented with near syncopal episode and fatigue. Patient found to have new onset atrial fibrillation. During the course of stay the patient was evaluated by cardiology. Workup included echocardiogram, cardiac stress test, and carotid Doppler. Stress test showed no stress-induced ischemia. Echocardiogram shows ejection fraction of 58%. CT scan showed no pulmonary embolism. At discharge his previous medication of aspirin and Plavix has been discontinued. New medication Eliquis 5 mg 1 pill twice daily has been added. He will continue with this medication. Other new medication includes metoprolol 25 mg 1 pill twice daily. Education on atrial fibrillation and chronic anti coalition therapy will be provided. Recommendation is for the patient follow up with cardiology in 1-2 weeks to follow up this hospitalization. Patient found to have left upper lobe pneumonia. At discharge patient will continue with Augmentin 500 mg 1 pill twice daily for 7 days. Recommendation is to recheck chest x-ray in 2-4 weeks to monitor resolution. Patient may have underlying COPD. This remained stable during his stay. Patient did not require oxygen at discharge. Patient does have history of tobacco use in the past. At discharge patient will continue with Symbicort 160 mcg 2 puffs twice daily and Pro air 2 puffs 3 times a day as needed for shortness of breath. Recommendations for the patient follow up with pulmonology in 2-4 weeks to monitor his progress. Tobacco cessation education will be provided. Patient has hyperlipidemia. Patient will continue with Lipitor daily. Patient has diabetes. Previous A1c was elevated. Blood sugar remained stable during his stay. At discharge, patient will continue with metformin. Recommendation is to maintain blood sugars less 140 fasting and less than 200 after meals. Further adjustment can be done by his PCP. Patient has hypertension. Medications were adjusted during his stay. At discharge, Patient will continue with metoprolol 50 mg 1 pill twice daily. Lisinopril is currently on hold. Patient may continue with hydralazine as previous. Recommendation is to maintain blood pressures less 150/80. Further adjustment can be done by his PCP. Patient has total occlusion of right internal carotid artery. This was noted in the past. Repeat carotid Doppler shows no significant change. No stenosis noted to the left side. Patient continue with above plan of care. Recommendation is to recheck carotid Doppler in 1 year to monitor his progress. Further adjustment in medication can be done by his PCP. Recommendations for the patient follow up with cardiology to further evaluate and address. Patient has GERD. Patient will continue with Protonix 40 mg 1 pill once daily. Vital Signs/Physical Exam: Temp Pulse Resp BP Pulse Ox 98.2 F 92 H 18 142/96 H 97 01/23/18 12:00 01/23/18 12:00 01/23/18 12:00 01/23/18 12:00 01/23/18 12:00 General: Alert, In no apparent distress, Oriented x3, Cooperative HEENT: Atraumatic Neck: Supple, No Thyromegaly Respiratory: Clear to auscultation bilaterally, Normal air movement Cardiovascular: Irregular heart rate/rhythm (Atrial fibrillation, rate controlled) Gastrointestinal: Normal bowel sounds, Soft and benign, Non-distended, No tenderness, No masses, No rebound, No guarding Musculoskeletal: No erythema, No tenderness, No warmth Integumentary: No tenderness/swelling, No erythema, No warmth, No cyanosis Neurological: Normal speech, Normal strength at 5/5 x4 extr, Normal tone, Normal affect Lymphatics: No axilla or inguinal lymphadenopathy Laboratory Data at Discharge: WBC 7.1 K/uL (4.3-10.9) D 01/23/18 06:26 Hgb 12.5 g/dL (13.6-17.9) L 01/23/18 06:26 Hct 35.7 % (39.6-49.0) L 01/23/18 06:26 Plt Count 187 K/uL (152-406) 01/23/18 06:26 PT 14.6 SECONDS (9.5-12.5) H 01/21/18 14:00 INR 1.23 01/21/18 14:00 APTT 27.7 SECONDS (24.3-36.9) 01/21/18 14:00 Sodium 138 mEq/L (135-145) 01/23/18 06:26 Potassium 4.3 mEq/L (3.6-5.0) 01/23/18 06:26 BUN 18 mg/dL (6-20) 01/23/18 06:26 Creatinine 0.89 mg/dL (0.61-1.24) 01/23/18 06:26 Glucose 126 mg/dL (65-120) H 01/23/18 06:26 Phosphorus 2.6 mg/dL (2.5-4.3) 01/22/18 05:02 Magnesium 1.9 mg/dL (1.8-2.5) 01/22/18 05:02 Total Bilirubin 0.7 mg/dL (0.3-1.2) 01/23/18 06:26 AST 23 IU/L (10-42) 01/23/18 06:26 ALT 33 IU/L (10-60) 01/23/18 06:26 Alkaline Phosphatase 47 IU/L (42-121) 01/23/18 06:26 B-Natriuretic Peptide 66 pg/ml (<=100) 01/21/18 14:00 Home Medications: Atorvastatin Calcium [Lipitor*] 10 mg PO BEDTIME #30 tab 08/15/16 Hydralazine [Apresoline*] 50 mg PO BID #60 tab 08/15/16 Metformin HCl [Glucophage*] 1,000 mg PO BIDWM #60 tab 08/15/16 Pantoprazole [Protonix Tab*] 40 mg PO DAILY #30 tab 08/15/16 Albuterol Sulfate [Proair Hfa] 8.5 gm IH TID PRN #1 hfa.aer.ad 01/23/18 Amoxicillin/Potassium Clav [Augmentin 500-125 Tablet] 1 each PO BID #14 tablet 01/23/18 Apixaban [Eliquis] 5 mg PO BID #60 tablet 01/23/18 Budesonide/Formoterol Fumarate [Symbicort 160-4.5 Mcg Inhaler] 2 puff IH BID #1 hfa.aer.ad 01/23/18 Metoprolol Tartrate [Lopressor*] 1 mg PO BID 6AM 6PM #60 tab 01/23/18 New Medications: Albuterol Sulfate [Proair Hfa] 8.5 gm IH TID PRN #1 hfa.aer.ad PRN Reason: Shortness Of Breath Amoxicillin/Potassium Clav [Augmentin 500-125 Tablet] 1 each PO BID #14 tablet Apixaban [Eliquis] 5 mg PO BID #60 tablet Budesonide/Formoterol Fumarate [Symbicort 160-4.5 Mcg Inhaler] 2 puff IH BID #1 hfa.aer.ad Metoprolol Tartrate [Lopressor*] 1 mg PO BID 6AM 6PM #60 tab Patient Discharge Instructions: 1. Patient will need to follow up with his PCP in 1 week to follow up this hospitalization. 2. Patient presented with near syncopal episode. Patient found to have new onset atrial fibrillation. New medications have been added. Patient evaluated by Cardiology. Stress test showed no stress-induced ischemia. Echocardiogram shows ejection fraction of 50 %. CT scan showed no pulmonary embolism. At discharge aspirin and Plavix has been discontinued. New medication Eliquis 5 mg 1 pill twice daily has been added. He will continue with this medication. Other new medication includes metoprolol 25 mg 1 pill twice daily. Recommendation is for the patient follow up with cardiology in 1-2 weeks to follow up this hospitalization. 3. Patient found to have left upper lobe pneumonia. At discharge patient will continue with Augmentin 500 mg 1 pill twice daily for 7 days. Recommendation is to recheck chest x-ray in 2-4 weeks to monitor resolution. 4. Patient may have underlying COPD. At discharge patient will continue with Symbicort 160 mcg 2 puffs twice daily and Pro air 2 puffs 3 times a day as needed for shortness of breath. Recommendations for the patient follow up with pulmonology in 2-4 weeks to monitor his progress. 5. Tobacco cessation education will be provided. 6. Patient has hyperlipidemia. Patient will continue with Lipitor daily. 7. Patient has diabetes. Patient will continue with metformin. Recommendation is to maintain blood sugars less 140 fasting and less than 200 after meals. Further adjustment can be done by his PCP. 8. Patient has hypertension. Medications have been adjusted. Patient will continue with metoprolol 50 mg 1 pill twice daily. Lisinopril is currently on hold. Patient may continue with hydralazine. Recommendation is to maintain blood pressures less 150/80. Further adjustment can be done by his PCP. 9. Patient has total occlusion of right internal carotid artery. Patient continue with above plan of care. Recommendation is to recheck carotid Doppler in 1 year to monitor his progress. Further adjustment in medication can be done by his PCP. 10. Patient has GERD. Patient will continue with Protonix 40 mg 1 pill once daily. Diet: AHA Activity: Ad natan Time spent managing pt's care (in minutes): 55
[2018-01-23 15:59] VITALS: BP 130/86
[2018-01-23 17:04] VITALS: TEMP 98.8
[2018-01-23] MEDS ORDERED: APIXABAN 5 MG TABLET PO SCH (21:00)
--- NOTE | 2018-01-24 04:05 | PN ---
Date of Progress Note: 01/23/2018 Mr. Ruslan Mclaughlin was admitted on 01/21/2018. I saw him on 01/22/2018 because of atrial fibrillatio n, near-syncope, dizziness, and weakness. He underwent multiple studies today including an echocardi ogram which showed an ejection fraction of 58%, left ventricular hypertrophy, mitral annular calcific ation, and aortic sclerosis without any stenosis. Mild mitral, aortic, and tricuspid regurgitation. Remained in atrial fibrillation with rate control. Stress test showed no ischemia. 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 Left caroti d artery seems to be stable at this point. Recommendation is for the patient to be discharged on a l ow-dose beta-rowan and Eliquis, and we will see him in the office in the near future. We will cons ider cardioversion eventually in the next 3 weeks at least, depending on what his symptoms are like. He can go home whenever it is okay with Dr. Simpson. ADENIKE/LISA Voice ID: [id number] Report ID: [id number]
== END 2018-01-23 17:26 | disposition home or self-care (01) ==
LOC: ER 13:05 → INTOOBSV 15:39 → ERHOLD 15:39 → 4TH 17:06
PROVIDERS: ADMIT Family Medicine; ATTEND Family Medicine
DX: I48.0 Paroxysmal atrial fibrillation (principal); J18.9 Pneumonia, unspecified organism; N17.9 Acute kidney failure, unspecified; E11.9 Type 2 diabetes mellitus without complications; I10 Essential (primary) hypertension; Z72.89 Other problems related to lifestyle; I77.89 Other specified disorders of arteries and arterioles; E78.5 Hyperlipidemia, unspecified; K21.9 Gastro-esophageal reflux disease without esophagitis; F17.210 Nicotine dependence, cigarettes, uncomplicated
CPT/HCPCS: 36415; 71045; 71046; 71275; 76705; 78452; 80048; 80053; 80076; 81003; 81015; 82550; 82553; 82962; 83605; 83735; 83880; 84100; 84145; 84443; 84484; 85025; 85610; 85730; 87040; 93005; 93017; 93306; 93880; 94640; 96361; 96365; 96367; 96375; 99285; A9500; G0378; J0456; J0696; J2785; J2930; J3475; J7030; Q9967

== ENCOUNTER 2020-09-26 13:01 | Inpatient (IN) | payer OTHER, SELFPAY ==
--- OUTSIDE RECORDS SUMMARY | 2020-09-26 13:03 | XMS REPORT | Continuity of Care Document ---
:1960 Author Organization [facility] t Address [address] [place] [address] Care Team Providers Name Role Phone Unavailable Unavailable Unavailable Problems Condition Condition Condition Status Onset Resolution Last Treating Co mments Source Name Details Category Date Date Treatment Clinician Date Microalbum Microalbum Problem Active [facility] in[facility] Abnormal Abnormal Problem [facility] of [facility] head head [facility] Hyperlipid Hyperlipid Problem Active [facility] emia emia [facility] Mixed Mixed Problem Active [facility] hyperlipid hyperlipid Alix kes - emia emia [facility] Benign Benign Problem Active [facility] essential essential Luke s - hypertensi hypertensi Me moria on on l [facility] Atrial Atrial Problem Active [facility] fibrillati fibrillati Alix kes - on, on, Memoria unspecifie unspecifie l d type d type [facility] Carotid Carotid Problem Active [facility] artery artery [facility] - occlusion occlusion Joseph marie l [facility] 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 [facility] - little shell tribe little shell tribe Memoria coronary coronary l artery artery [facility] Alcohol Alcohol Problem Active [facility] use, use, [facility] - unspecifie unspecifie Me moria d with d with l other other [facility] alcohol-in alcohol-in en t duced duced Clinics disorder disorder Simple Simple Problem Active [facility] renal cyst renal cyst Alix kes - [facility] Diabetes Diabetes Problem Active [facility] type 2, type 2, [facility] - uncontroll uncontroll Me moria ed ed l [facility] Overweight Overweight Problem Active [facility] (BMI (BMI [facility] - 25.0-29.9) 25.0-29.9) Me moria l [facility] ent [facility] Adult BMI Adult BMI Problem Active [facility] 30.0-30.9 30.0-30.9 Luke s - kg/sq m kg/sq m Memoria [facility] Erectile Erectile Problem Active [facility] dysfunctio dysfunctio Alix kes - n, n, Memoria unspecifie unspecifie l d erectile d erectile Ou tpati dysfunctio dysfunctio en t n type n type Clinics Allergies, Adverse Reactions, Alerts This patient has no known allergies or adverse reactions. Medications Ordered Filled Start Stop Current Ordering Indication Dosage Frequency Signature Comments Components Source Medication Medication Date Date Medication? Clinician (SIG) Name Name Metoprolol Metoprolol Yes Dontae [address] [facility] Tartrate Tartrate 6-06 Simpson with food L ukes - 00:00: Memoria 00 l [facility] ent [facility] Simvastatin Simvastatin Yes Dontae [address] [facility] Simpson in the [facility] - evening [facility] Eliquis Eliquis Yes Dontae [address] [facility] Simpson [facility] l [facility] ent [facility] Januvia Januvia Yes Dontae [address] [facility] Simpson [facility] l [facility] ent [facility] Plavix Plavix Yes Dontae 1 tablet [facility] Simpson kes - [facility] l [facility] Protonix Protonix Yes Dontae [address] [facility] ent [facility] Metformin Metformin Yes Dontae [address] [facility] HCl HCl Simpson with meals [facility] l [facility] ent [facility] Lisinopril Lisinopril Yes Dontae [address] [facility] [address] Simpson [facility] l [facility] ent [facility] Aspirin Aspirin Yes Dontae [address] [facility] Adult Low Adult Low Simpson Luke s - Dose Dose Memoria l [facility] ent [facility] Immunizations Ordered Filled Immunization Date Status Comments Sourc e Immunization Name Name TDAP > 7 TDAP > 7 2018-11-[address] [facility] - Years-Adacel Years-Adacel 00:00:00 [facility] Afluria Afluria 2018-11-[address] [facility] - 00:00:00 [facility] PNEUMAVAX 23 PNEUMAVAX 23 2018-11-[address] [facility] - 00[facility] Procedures This patient has no known procedures. Encounters Start End Encounter Admission Attending Care Care Encounter Source Date/Time Date/Time Type Type Clinicians Facility Department ID 2019-01-26 2019-01-26 [facility] [id number] [facility] 08:09[facility]00 08:09:00 [facility] [employer] [facility] Medicine Outpati ent Clinics 2019-01-18 2019-01-18 [facility] [id number] [address] 11:56:00 11:56:00 [facility] [employer] [facility] Outpati [facility] Clinics 2019-01-16 2019-01-16 [facility] [id number] [address] 13:00:00 13:00:00 [facility] [employer] [facility] Outpat[facility] Clinics 2018-11-23 2018-11-23 [facility] [id number] 14:41:00 14:41:00 [facility] [employer] [facility] Outpat[facility] Clin[facility] 2018-11-15 2018-11-15 [facility] [id number] [address] 10:45:00 10:45:00 [facility] [employer] [facility] Outpat[facility] Clin[facility] 2018-10-19 2018-10-19 [facility] [id number] 14[facility]00:00 14:00:00 [employer] [facility] Outpati [facility] Clinics 2018-06-05 2018-06-05 [facility] [id number] 10:35:00 10:35:00 [facility] [employer] [facility] Out[facility] Clin[facility] 2018-03-01 2018-03-01 [facility] [id number] 13:45:00 13:45:00 [facility] [employer] [facility] Outpat[facility] Clinics Results This patient has no known results.
[2020-09-26 13:59] LABS: Absolute Lymphocytes (CBC) 1.2 K/uL (0.7-4.9); Basophils % 0.9 % (0-1.3); Hematocrit 46.6 % (39.6-49.0); Lymphocytes % 22.2 % (15.3-44.8); MPV 8.1 fL (7.6-11.3); Protime INR 1.29; RBC Red Blood Cell Count 4.95 M/uL (4.33-5.43)
[2020-09-26] MEDS ORDERED: FUROSEMIDE 40 MG/4 ML VIAL ONE (14:09)
[2020-09-26 14:26] LABS: Albumin 3.3 g/dL (3.4-5.0); Bilirubin Direct 0.8 mg/dL (0-0.2); Bilirubin Total 2.6 mg/dL (0.2-1.0); Protein, Total 7.5 g/dL (6.4-8.2); Troponin (Emerg Dept Use Only) 0.04 ng/mL (0.0-0.045)
--- NOTE | 2020-09-26 14:27 | RAD REPORT ---
EXAM DESCRIPTION: RAD - Chest Single View - 09/26/2020 2:06 pm CLINICAL HISTORY: SOB, chest pain, cough COMPARISON: Two view chest December 2017 TECHNIQUE: AP portable chest image was obtained 09/26/2020 2:06 pm . FINDINGS: Lung volumes are low. Vasculature and lung markings are prominent centrally. There is an o verall prominence of the interstitial pattern. Bilateral costophrenic angle blunting is present. Hear t size within range of normal. Trachea is midline. No pneumothorax. No acute bony abnormality seen. N o acute aortic findings suspected. IMPRESSION: Chest findings favor a mild failure/ volume overload with small bilateral pleural effusi ons. Chest findings are not specific for infectious etiology.
[2020-09-26 14:28] LABS: Magnesium 2.2 mg/dL (1.8-2.4); Potassium 4.4 mmol/L (3.5-5.1)
[2020-09-26] MEDS ORDERED: dilTIAZem HCL 25 MG/5 ML VIAL IV ONE (14:29)
[2020-09-26 14:40] LABS: SARS-COV-2 RT PCR NEGATIVE (NEGATIVE)
--- NOTE | 2020-09-26 15:14 | ER ---
Nurse's Notes [facility] Name: Ruslan Mclaughlin Age: 60 yrs Sex: Male : 1960 Arrival Date: 09/26/2020 Time: 13:03 Bed 18 Private MD: Diagnosis: Unspecified combined systolic (congestive) and diastolic (congestive) heart failure;Atrial fibrillation and flutter Presentation: 09/26 13:07 Chief complaint: Patient states: Chest pain about month with little cough. SOB at rest, ca1 worse with exertion. Reports swelling on michelle ankles, michelle. legs, michelle knees. Worsening of SOB prompted visit to the ER. Denies fever. Coronavirus screen: Client denies travel out of the [place] in the last 14 days. shortness of breath, Client presents with at least one sign or symptom that may indicate coronavirus-19. Standard/surgical mask placed on the client. Provider contacted for isolation considerations. Ebola Screen: Patient negative for fever greater than or equal to 101.5 degrees Fahrenheit, and additional compatible Ebola Virus Disease symptoms Patient denies exposure to infectious person. Patient denies travel to an Ebola-affected area in the 21 days before illness onset. No symptoms or risks identified at this time. Initial Sepsis Screen: Does the patient meet any 2 criteria? No. Patient's initial sepsis screen is negative. Does the patient have a suspected source of infection? No. Patient's initial sepsis screen is negative. Risk Assessment: Do you want to hurt yourself or someone else? Patient reports no desire to harm self or others. Onset of symptoms was September 26, 2020. 13:07 Method Of Arrival: Ambulatory ca1 13:07 Acuity: GONZALO 3 ca1 Historical: - Allergies: 13:13 No Known Allergies; ca1 - Home Meds: 13:13 Stopped taking BP and Diabetes medications [Active]; ca1 - PMHx: 13:13 Diabetes - NIDDM; Hypertension; ca1 - PSHx: 13:13 None; ca1 - Immunization history:: Adult Immunizations up to date, Pneumococcal vaccine is up to date, Flu vaccine is not up to date. - Social history:: Smoking status: Patient denies any tobacco usage or history of. Screenin:48 Abuse screen: Denies threats or abuse. Nutritional screening: No deficits noted. jd3 Tuberculosis screening: No symptoms or risk factors identified. Fall Risk IV access (20 points). Ambulatory Aid- None/Bed Rest/Nurse Assist (0 pts). Gait- Normal/Bed Rest/Wheelchair (0 pts) Mental Status- Oriented to own ability (0 pts). Total Pfeiffer Fall Scale indicates No Risk (0-24 pts). Assessment: 13:46 General: Appears in no apparent distress. uncomfortable, Behavior is calm, cooperative, jd3 appropriate for age. Pain: Denies pain. Neuro: Level of Consciousness is awake, alert, obeys commands, Oriented to person, place, time, situation. Cardiovascular: Denies chest pain, Capillary refill < 3 seconds Patient's skin is warm and dry. Rhythm is irregular. Respiratory: Reports shortness of breath at rest cough that is persistent Airway is patent Respiratory effort is even, unlabored, Respiratory pattern is regular, symmetrical. GI: No signs and/or symptoms were reported involving the gastrointestinal system. : No signs and/or symptoms were reported regarding the genitourinary system. EENT: No signs and/or symptoms were reported regarding the EENT system. Derm: Skin is intact, Skin is dry, Skin is normal, Skin temperature is warm. Musculoskeletal: Circulation, motion, and sensation intact. Range of motion: intact in all extremities. 14:30 Reassessment: Patient appears in no apparent distress at this time. No changes from jd3 previously documented assessment. Patient and/or family updated on plan of care and expected duration. Pain level reassessed. Patient is alert, oriented x 3, equal unlabored respirations, skin warm/dry/pink. 15:30 Reassessment: Patient appears in no apparent distress at this time. No changes from jd3 previously documented assessment. Patient and/or family updated on plan of care and expected duration. Pain level reassessed. Patient is alert, oriented x 3, equal unlabored respirations, skin warm/dry/pink. 16:22 Reassessment: Patient appears in no apparent distress at this time. Patient and/or jd3 family updated on plan of care and expected duration. Pain level reassessed. Patient is alert, oriented x 3, equal unlabored respirations, skin warm/dry/pink. 17:09 Reassessment: Patient appears in no apparent distress at this time. Patient and/or jd3 family updated on plan of care and expected duration. Pain level reassessed. Patient is alert, oriented x 3, equal unlabored respirations, skin warm/dry/pink. report given to Larry DOUGHERTY. Vital Signs: 13:07 Pulse 97; Resp 20 S; Temp 97.6(TE); Pulse Ox 92% on R/A; Weight 84.82 kg (R); Height 5 ca1 ft. 6 in. (167.64 cm) (R); Pain 0/10; 13:16 BP 155 / 104; ca1 14:03 BP 170 / 124; Pulse 119; Resp 20; Pulse Ox 100% on R/A; jd3 14:39 BP 159 / 104; Pulse 109; Resp 18 S; Pulse Ox 96% on R/A; jd3 16:20 BP 157 / 112; Pulse 116; Resp 20 S; Pulse Ox 96% on R/A; jd3 17:09 BP 154 / 102; Pulse 119; Resp 20 S; Pulse Ox 96% on R/A; jd3 13:07 Body Mass Index 30.18 (84.82 kg, 167.64 cm) ca1 ED Course: 13:03 Patient arrived in ED. rg4 13:12 Triage completed. ca1 13:13 Arm band placed on right wrist. ca1 13:19 Fantasma Barreto MD is Attending Physician. tw4 13:25 EKG done, by ED staff, reviewed by Fantasma Barreto MD. jp3 13:28 Scottie Salvador, RN is Primary Nurse. jd3 13:44 Strep Sent. jd3 13:46 Inserted saline lock: 20 gauge in right forearm, using aseptic technique. Blood jd3 collected. 13:47 COVID swab sent to lab. Flu and/or RSV swab sent to lab. Strep swab sent to lab. jp3 13:48 Patient has correct armband on for positive identification. Placed in gown. Bed in low jd3 position. Call light in reach. Side rails up X 1. ekg monitor on. Pulse ox on. NIBP on. 14:06 XRAY Chest (1 view) In Process Unspecified. EDMS 15:12 Tony Man is Hospitalizing Provider. tw4 17:10 No provider procedures requiring assistance completed. Patient admitted, IV remains in jd3 place. Administered Medications: 14:01 Drug: Lasix 40 mg Route: IVP; Site: right forearm; jd3 15:00 Follow up: Response: No adverse reaction jd3 14:20 Drug: Cardizem 10 mg Route: IVP; Site: right forearm; jd3 15:20 Follow up: Response: No adverse reaction jd3 Outcome: 15:14 Decision to Hospitalize by Provider. tw4 17:10 Condition: stable jd3 17:10 Instructed on the need for admit, Demonstrated understanding of instructions. 17:29 Admitted to Med/surg accompanied by tech, via wheelchair, room 210, with chart, Report jd3 called to Larry DOUGHERTY 17:29 Patient left the ED. jd3 Signatures: Dispatcher [employer] EDMS Danni Joshi RN RN ph Yael Betancur rg4 Scottie Salvador RN RN jd3 Fantasma Barreot MD MD tw4 Amilcar Wan jp3 Ailyn Horvath RN RN ca1 Corrections: (The following items were deleted from the chart) 13:16 13:13 BP 160 / 132 R Arm; ca1 ca1 13:16 13:13 BP 167 / 130 L Arm; ca1 ca1 13:53 13:44 Influenza Screen (A \T\ B)+BA.LAB.BRZ drawn and sent. j EDMS 13:53 13:44 CORONAVIRUS+MR.LAB.BRZ drawn and sent. [facility] EDMS 16:11 13:07 Chief complaint: Patient states: Chest pain about a month with little cough. SOB ph at rest, worse with exertion. Reports swelling on michelle ankles, michelle. legs, michelle ankles. Worsening of SOB prompted visit to the ER. Denies fever ca1
--- NOTE | 2020-09-26 15:15 | EDPHYS ---
Physician Documentation [facility] Name: Ruslan Mclaughlin Age: 60 yrs Sex: Male : 1960 Arrival Date: 09/26/2020 Time: 13:03 Bed 18 Private MD: ED Physician Fantasma Barreto HPI: 09/26 13:29 This 60 yrs old Male presents to ER via Ambulatory with complaints of Chest tw4 Pain, Breathing Difficulty. 13:29 The patient has shortness of breath at rest. Onset: The symptoms/episode began/occurred tw4 last month, and became worse 2 day(s) ago. Duration: The symptoms are continuous. The patient's shortness of breath has no apparent modifying factors. Severity of symptoms: At their worst the symptoms were moderate in the emergency department the symptoms are unchanged. The patient has not experienced similar symptoms in the past. Historical: - Allergies: 13:13 No Known Allergies; ca1 - Home Meds: 13:13 Stopped taking BP and Diabetes medications [Active]; ca1 - PMHx: 13:13 Diabetes - NIDDM; Hypertension; ca1 - PSHx: 13:13 None; ca1 - Immunization history:: Adult Immunizations up to date, Pneumococcal vaccine is up to date, Flu vaccine is not up to date. - Social history:: Smoking status: Patient denies any tobacco usage or history of. ROS: 13:29 Constitutional: Negative for fever, chills, and weight loss, Eyes: Negative for injury, tw4 pain, redness, and discharge, Cardiovascular: Negative for chest pain, palpitations, and edema, Abdomen/GI: Negative for abdominal pain, nausea, vomiting, diarrhea, and constipation, Back: Negative for injury and pain, MS/Extremity: Negative for injury and deformity, Skin: Negative for injury, rash, and discoloration, Neuro: Negative for headache, weakness, numbness, tingling, and seizure. 13:29 Respiratory: Positive for shortness of breath, Negative for cough, dyspnea on exertion, hemoptysis, orthopnea, pleurisy. Exam: 13:29 Constitutional: This is a well developed, well nourished patient who is awake, alert, tw4 and in no acute distress. Head/Face: Normocephalic, atraumatic. Chest/axilla: Normal chest wall appearance and motion. Nontender with no deformity. No lesions are appreciated. Cardiovascular: Regular rate and rhythm with a normal S1 and S2. No gallops, murmurs, or rubs. Normal PMI, no JVD. No pulse deficits. 13:29 Abdomen/GI: Soft, non-tender, with normal bowel sounds. No distension or tympany. No guarding or rebound. No evidence of tenderness throughout. Back: No spinal tenderness. No costovertebral tenderness. Full range of motion. 13:29 Neuro: Awake and alert, GCS 15, oriented to person, place, time, and situation. Cranial nerves II-XII grossly intact. Motor strength 5/5 in all extremities. Sensory grossly intact. Cerebellar exam normal. Normal gait. 13:29 Respiratory: the patient does not display signs of respiratory distress, Respirations: normal, Breath sounds: decreased breath sounds, are located in both bases. 13:29 Musculoskeletal/extremity: Extremities: noted in the right leg: swelling, noted in the left leg: swelling, ROM: no acute changes, Circulation is intact in all extremities. Vital Signs: 13:07 Pulse 97; Resp 20 S; Temp 97.6(TE); Pulse Ox 92% on R/A; Weight 84.82 kg (R); Height 5 ca1 ft. 6 in. (167.64 cm) (R); Pain 0/10; 13:16 BP 155 / 104; ca1 14:03 BP 170 / 124; Pulse 119; Resp 20; Pulse Ox 100% on R/A; jd3 14:39 BP 159 / 104; Pulse 109; Resp 18 S; Pulse Ox 96% on R/A; jd3 16:20 BP 157 / 112; Pulse 116; Resp 20 S; Pulse Ox 96% on R/A; jd3 17:09 BP 154 / 102; Pulse 119; Resp 20 S; Pulse Ox 96% on R/A; jd3 13:07 Body Mass Index 30.18 (84.82 kg, 167.64 cm) ca1 MDM: 13:19 Patient medically screened. 09/26 13:19 Order name: Basic Metabolic Panel 09/26 13:19 Order name: CBC with Diff; Complete Time: 14:07 09/26 13:19 Order name: LFT's 09/26 13:19 Order name: Magnesium 09/26 13:19 Order name: NT PRO-BNP tw 09/26 13:19 Order name: PT-INR; Complete Time: 14:07 tw4 09/26 13:19 Order name: Troponin (emerg Dept Use Only) tw 09/26 13:19 Order name: XRAY Chest (1 view) tw 09/26 13:19 Order name: Strep tw 09/26 14:23 Order name: Throat Culture EDMO 09/26 14:41 Order name: COVID-19/FLU A+B EDMS 09/26 13:19 Order name: EKG; Complete Time: 13:20 tw4 09/26 13:19 Order name: Cardiac monitoring; Complete Time: 13:32 tw4 09/26 13:19 Order name: EKG - Nurse/Tech; Complete Time: 13:32 tw4 09/26 13:19 Order name: IV Saline Lock; Complete Time: 13:44 tw4 09/26 13:19 Order name: Labs collected and sent; Complete Time: 13:44 4 09/26 13:19 Order name: O2 Per Protocol; Complete Time: 13:28 4 09/26 13:19 Order name: O2 Sat Monitoring; Complete Time: 13:28 4 09/26 13:19 Order name: Document PUI#; Complete Time: 13:28 09/26 13:19 Order name: Droplet/Contact Precautions; Complete Time: 13:28 09/26 13:19 Order name: Notify [facility] Dept [phone]/ ; Complete Time: 13:28 09/26 13:19 Order name: O2 Per Protocol; Complete Time: 13:28 tw Administered Medications: 14:01 Drug: Lasix 40 mg Route: IVP; Site: right forearm; jd3 15:00 Follow up: Response: No adverse reaction jd3 14:20 Drug: Cardizem 10 mg Route: IVP; Site: right forearm; jd3 15:20 Follow up: Response: No adverse reaction jd3 Disposition: 09/26/20 15:14 Hospitalization ordered by Tony Man for Inpatient Admission. Preliminary diagnosis are Unspecified combined systolic (congestive) and diastolic (congestive) heart failure, Atrial fibrillation and flutter. - Bed requested for Telemetry/MedSurg (Inpatient). - Status is Inpatient Admission. jd3 - Condition is Stable. - Problem is an ongoing problem. - Symptoms have improved. Signatures: Dispatcher [employer] [facility] Mali Granado RN RN dw Scottie Salvador RN RN jd3 Fantasma Barreto MD MD tw4 Ailyn Horvath RN RN ca1 Corrections: (The following items were deleted from the chart) 13:53 13:20 CORONAVIRUS+MR.LAB.BRZ ordered. [facility] EDMO 13:53 13:20 Influenza Screen (A \T\ B)+BA.LAB.BRZ ordered. [facility] EDMO 16:42 15:14 Hospitalization Ordered by Tony Man for Inpatient Admission. Preliminary diagnosis is Unspecified combined systolic (congestive) and diastolic (congestive) heart failure; Atrial fibrillation and flutter. Bed requested for Telemetry/MedSurg (Inpatient). Status is Inpatient Admission. Condition is Stable. Problem is an ongoing problem. Symptoms have improved. 4 16:46 16:42 09/26/2020 15:14 Hospitalization Ordered by Tony Man for Inpatient dw Admission. Preliminary diagnosis is Unspecified combined systolic (congestive) and diastolic (congestive) heart failure; Atrial fibrillation and flutter. Bed requested for Telemetry/MedSurg (Inpatient). Status is Inpatient Admission. Condition is Stable. Problem is an ongoing problem. Symptoms have improved. 17:29 16:46 09/26/2020 15:14 Hospitalization Ordered by Tony Man for Inpatient jd3 Admission. Preliminary diagnosis is Unspecified combined systolic (congestive) and diastolic (congestive) heart failure; Atrial fibrillation and flutter. Bed requested for Telemetry/MedSurg (Inpatient). Status is Inpatient Admission. Condition is Stable. Problem is an ongoing problem. Symptoms have improved.
--- NOTE | 2020-09-26 16:51 | P.HP ---
Certification for Inpatient Patient admitted to: Inpatient With expected LOS: >2 Midnights Practitioner: I am a practitioner with admitting privileges, knowledge of patient current condition, hospital course, and medical plan of care. Services: Services provided to patient in accordance with Admission requirements found in Title 42 Section 412.3 of the Code of Federal Regulations Patient History Date of Service: 09/26/20 Reason for admission: Shortness of breath History of Present Illness: 60-year-old gentleman with a history of hypertension, diabetes, chronic atrial fibrillation presented emergency department with a complaint of shortness of breath. There has been present for about 1 month. Patient reports progressive for symptoms from shortness of breath with exertion to shortness of breath at rest as well as orthopnea. He stated he could not wait for his appointment with his PCP Dr. Simpson. Patient stated he lost his medical insurance and has been noncompliant, and has not taking any medication for several months. Patient was in atrial fibrillation with RVR with a rate of 150 in the ED. Chest x-ray demonstrated vascular congestion. Patient was given a dose of IV Lasix and a dose of IV Cardizem 10 mg. His heart rate responded only briefly but was back to rapid afib at 150 when I saw him in the ED. EKG demonstrated rapid atrial fibrillation. BNP is elevated, initial troponin is negative. Rapid COVID 19 and influenza test are negative. Patient is hospitalized for further management of CHF exacerbation and rapid atrial fibrillation. Allergies No Known Allergies Allergy (Unverified 08/12/16 20:08) Home Medications: Atorvastatin Calcium [Lipitor*] 10 mg PO BEDTIME #30 tab 08/15/16 Hydralazine [Apresoline*] 50 mg PO BID #60 tab 08/15/16 Metformin HCl [Glucophage*] 1,000 mg PO BIDWM #60 tab 08/15/16 Pantoprazole [Protonix Tab*] 40 mg PO DAILY #30 tab 08/15/16 Albuterol Sulfate [Proair Hfa] 8.5 gm IH TID PRN #1 hfa.aer.ad 01/23/18 Amoxicillin/Potassium Clav [Augmentin 500-125 Tablet] 1 each PO BID #14 tablet 01/23/18 Apixaban [Eliquis] 5 mg PO BID #60 tablet 01/23/18 Budesonide/Formoterol Fumarate [Symbicort 160-4.5 Mcg Inhaler] 2 puff IH BID #1 hfa.aer.ad 01/23/18 Metoprolol Tartrate [Lopressor*] 1 mg PO BID 6AM 6PM #60 tab 01/23/18 - Past Medical/Surgical History Diabetic: Yes -: Diabetes mellitus type 2 -: Hypertension -: Chronic atrial fibrillation -: admitted with kidney stones and diagnosis of diabetes 2008 Psychosocial/ Personal History: He is a , has no children, 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 - Family History Mother -: Diabetes, Cancer (Lung cancer) Sister -: Diabetes Father -: Liver disease - Social History Alcohol use: Yes CD- Drugs: Yes Caffeine use: No Review of Systems Other: Except as documented, all other systems reviewed and negative. Physical Examination - Physical Exam General: Alert, In no apparent distress, Oriented x3 HEENT: Atraumatic, PERRLA, Mucous membr. moist/pink, EOMI, Sclerae nonicteric Neck: Supple, JVD not distended, No Thyromegaly Respiratory: Normal air movement, Crackles/rales (Bibasilar rales, no rhonchi or wheezes.) Cardiovascular: Normal S1 S2, No murmurs, Edema (2+ bilateral lower extremity pitting edema.), Irregular heart rate/rhythm Capillary refill: <2 Seconds Gastrointestinal: Normal bowel sounds, Soft and benign, Non-distended, No tenderness Musculoskeletal: No swelling, No tenderness Integumentary: No rashes, No erythema Neurological: Normal speech, Normal strength at 5/5 x4 extr, Cranial nerves 3-12 intact - Studies Laboratory Data (last 24 hrs) 09/26/20 13:40: PT 15.2 H, INR 1.29 09/26/20 13:40: WBC 5.4, Hgb 15.1, Hct 46.6, Plt Count 167 09/26/20 13:40: Sodium 140, Potassium 4.4, BUN 22 H, Creatinine 1.25, Glucose 132 H, Magnesium 2.2, Total Bilirubin 2.6 H, AST 41 H, ALT 43, Alkaline Phosphatase 104 Microbiology Data (last 24 hrs): 09/26/20 13:40 Throat Group A Streptococcus Rapid Screen - Final Assessment and Plan - Problems (Diagnosis) (1) Acute on chronic diastolic heart failure Current Visit: Yes Status: Acute (2) Rapid atrial fibrillation Current Visit: Yes Status: Acute (3) Alcohol use Onset Date: 08/13/16 Current Visit: No Status: Chronic (4) Diabetes mellitus Onset Date: 08/13/16 Current Visit: No Status: Chronic Qualifiers: Diabetes mellitus type: type 2 Diabetes mellitus health type technician insulin use: without health type technician use Diabetes mellitus complication status: without complication Qualified Code(s): E11.9 - Type 2 diabetes mellitus without complications (5) Hyperbilirubinemia Current Visit: Yes Status: Acute (6) Hypertension Onset Date: 08/13/16 Current Visit: No Status: Chronic Qualifiers: Hypertension type: essential hypertension Qualified Code(s): I10 - Essential (primary) hypertension - Plan Admit to the medical floor with telemetry. Start oral metoprolol 25 mg b.i.d. Will start Cardizem drip if heart rate does not respond to oral metoprolol. Trend troponin Obtain echo. Treat CHF exacerbation with IV Lasix. Monitor intake and output Daily weight. Check TSH Monitor and optimize magnesium and potassium levels. Monitor BMP Cardiology consult. Insulin sliding scale for glucose management. - Advance Directives Does patient have a Living Will: No Does patient have a Durable POA for Healthcare: No
[2020-09-26 17:30] VITALS: BMI 29.8
[2020-09-26] MEDS: FUROSEMIDE 40 MG/4 ML VIAL IV SCH (17:53)
[2020-09-26] MEDS ORDERED: WARFARIN SODIUM 5 MG TAB PO SCH (18:00)
[2020-09-26] MEDS: METOPROLOL TAR 25 MG TAB PO SCH (20:55)
[2020-09-26] MEDS: INSULIN -REGULAR HUMAN 50 UNIT/0.5 ML ML SQ SCH (20:55)
[2020-09-26 21:31] LABS: Urine Appearance CLEAR; Urine Bilirubin NEGATIVE (NEG); Urine Blood NEGATIVE (NEG); Urine Color YELLOW; Urine Glucose NEGATIVE (NEG); Urine Protein TRACE (NEG); Urine Specific Gravity <=1.005 (1.005-1.030); Urine pH 5.5 (5.0-7.0)
[2020-09-26 21:33] LABS: Urine Microscopic Reflex NO UMIC
[2020-09-27] MEDS: METOPROLOL TAR 25 MG TAB PO SCH (05:16)
[2020-09-27 05:36] LABS: Absolute Lymphocytes (CBC) 1.2 K/uL (0.7-4.9); Hematocrit 44.8 % (39.6-49.0); Lymphocytes % 21.6 % (15.3-44.8); MPV 8.4 fL (7.6-11.3); Protime INR 1.29; RBC Red Blood Cell Count 4.79 M/uL (4.33-5.43)
[2020-09-27 06:06] LABS: Albumin 3.3 g/dL (3.4-5.0); Bilirubin Total 3.2 mg/dL (0.2-1.0); Magnesium 1.9 mg/dL (1.8-2.4); Phosphorus 3.8 mg/dL (2.5-4.9); Protein, Total 7.4 g/dL (6.4-8.2); Thyroid Stimulating Hormone 2.48 uIU/mL (0.360-3.740)
[2020-09-27] MEDS: INSULIN -REGULAR HUMAN 50 UNIT/0.5 ML ML SQ SCH ×2 (07:30→11:30)
[2020-09-27] MEDS: FUROSEMIDE 40 MG/4 ML VIAL IV SCH (08:22)
[2020-09-27 09:27] VITALS: TEMP 97.6
[2020-09-27 12:40] VITALS: O2SAT 95
[2020-09-27 13:04] VITALS: BP 119/89
--- NOTE | 2020-09-27 14:07 | EKG ---
Test Date: 2020-09-26 Test Time: 13:22:36 Doctor Of Medicine: WINSTON MEASUREMENT RESULTS: Intervals: Rate: 137 [place]: QRSD: 88 QT: 280 QTc: 422 [place]: P: WI: QRS: -20 T: 37 INTERPRETIVE STATEMENTS: Atrial fibrillation with rapid ventricular response Nonspecific T wave abnormality Abnormal ECG Compared to ECG 01/21/2018 14:27:21 T-wave abnormality now present Electronically Signed On 09-27-20 14:04:50 [facility] by Thang Kelsey
--- NOTE | 2020-09-27 14:37 | P.DS ---
Admission Date: 09/26/20 Discharge Date: 09/27/20 Disposition: ROUTINE DISCHARGE Discharge Condition: FAIR Reason for Admission: Shortness of breath - Problems (1) Acute on chronic diastolic heart failure Current Visit: Yes Status: Acute (2) Rapid atrial fibrillation Current Visit: Yes Status: Acute (3) Alcohol use Onset Date: 08/13/16 Current Visit: No Status: Chronic (4) Diabetes mellitus Onset Date: 08/13/16 Current Visit: No Status: Chronic Qualifiers: Diabetes mellitus type: type 2 Diabetes mellitus intermediate project manager insulin use: without fdc use Diabetes mellitus complication status: without complication Qualified Code(s): E11.9 - Type 2 diabetes mellitus without complications (5) Hyperbilirubinemia Current Visit: Yes Status: Acute (6) Hypertension Onset Date: 08/13/16 Current Visit: No Status: Chronic Qualifiers: Hypertension type: essential hypertension Qualified Code(s): I10 - Essential (primary) hypertension Brief History of Present Illness: 60-year-old gentleman with a history of hypertension, diabetes, chronic atrial fibrillation presented emergency department with a complaint of shortness of breath. There has been present for about 1 month. Patient reports progressive symptoms from shortness of breath with exertion to shortness of breath at rest as well as orthopnea. He stated he could not wait for his appointment with his PCP Dr. Simpson. Patient stated he lost his medical insurance and has been noncompliant, and has not taking any medication for several months. Patient was in atrial fibrillation with RVR with a rate of 150 in the ED. Chest x-ray demonstrated vascular congestion. Patient was given a dose of IV Lasix and a dose of IV Cardizem 10 mg. His heart rate responded only briefly but was back to rapid afib at 150 when I saw him in the ED. EKG demonstrated rapid atrial fibrillation. BNP is elevated, initial troponin is negative. Rapid COVID 19 and influenza test are negative. Patient is hospitalized for further management of CHF exacerbation and rapid atrial fibrillation. Hospital Course: Patient admitted to the medical floor and treated for CHF exacerbation with IV Lasix. He was also started on metoprolol for atrial fibrillation rate control. He was also put on warfarin for atrial fibrillation anticoagulation. Patient had previously been on Eliquis but stated he cannot afford it now. His shortness of breath resolved with treatment. He now denies shortness of breath with ambulation. His heart rate was in the 70s with the current dose of metoprolol. Echocardiogram is not available this weekend. Outpatient echocardiogram to re-evaluate his LV function is recommended. Patient lower extremity edema has also improved. Patient has improved clinically and deemed stable for discharge. He is discharged with warfarin and informed to follow with Dr. Simpson Tuesday next week 09/29/2020 for PT/INR check and Warfarin dose adjustment. Vital Signs/Physical Exam: Temp Pulse Resp BP Pulse Ox 97.6 F 80 23 H 119/89 95 09/27/20 12:00 09/27/20 12:00 09/27/20 12:00 09/27/20 12:09/27/20 12:00 General: Alert, In no apparent distress, Oriented x3 Respiratory: Clear to auscultation bilaterally, Normal air movement Cardiovascular: Normal S1 S2, Edema, Irregular heart rate/rhythm Gastrointestinal: Normal bowel sounds, Soft and benign, No tenderness Musculoskeletal: No tenderness Integumentary: Other (Venous stasis dermatitis) Neurological: Normal strength at 5/5 x4 extr Laboratory Data at Discharge: WBC 5.7 K/uL (4.3-10.9) 09/27/20 05:01 Hgb 14.7 g/dL (13.6-17.9) 09/27/20 05:01 Hct 44.8 % (39.6-49.0) 09/27/20 05:01 Plt Count 208 K/uL (152-406) D 09/27/20 05:01 PT 15.2 SECONDS (9.5-12.5) H 09/27/20 05:01 INR 1.29 09/27/20 05:01 Sodium 138 mmol/L (136-145) 09/27/20 05:01 Potassium 4.0 mmol/L (3.5-5.1) 09/27/20 05:01 BUN 24 mg/dL (7-18) H 09/27/20 05:01 Creatinine 1.26 mg/dL (0.55-1.3) 09/27/20 05:01 Glucose 119 mg/dL (74-106) H 09/27/20 05:01 Phosphorus 3.8 mg/dL (2.5-4.9) 09/27/20 05:01 Magnesium 1.9 mg/dL (1.8-2.4) 09/27/20 05:01 Total Bilirubin 3.2 mg/dL (0.2-1.0) H 09/27/20 05:01 AST 33 U/L (15-37) 09/27/20 05:01 ALT 40 U/L (12-78) 09/27/20 05:01 Alkaline Phosphatase 113 U/L (45-117) 09/27/20 05:01 Troponin I 0.05 ng/mL (0.0-0.045) H 09/27/20 01:32 Triglycerides 116 mg/dL (<150) 09/27/20 05:01 Cholesterol 171 mg/dL (<200) 09/27/20 05:01 HDL Cholesterol 37 mg/dL (40-60) L 09/27/20 05:01 Cholesterol/HDL Ratio 4.62 09/27/20 05:01 Home Medications: Furosemide [Lasix] 40 mg PO DAILY #30 tab 09/27/20 Metoprolol Tartrate [Lopressor*] 25 mg PO BID 6AM 6PM #60 tab 09/27/20 Warfarin Sodium [Coumadin*] 5 mg PO DAILY 5 PM #15 tab 09/27/20 New Medications: Warfarin Sodium [Coumadin*] 5 mg PO DAILY 5 PM #15 tab Furosemide [Lasix] 40 mg PO DAILY #30 tab Metoprolol Tartrate [Lopressor*] 25 mg PO BID 6AM 6PM #60 tab Patient Discharge Instructions: You are prescribed warfarin to help prevent stroke because you have atrial fibrillation. Warfarin action needs to be monitored by checking your blood PT/INR level. Call Dr. Simpson's Office on Tuesday09/29/2020 to have your PT/INR checked so he can adjust your warfarin dose. Diet: AHA Activity: Ad natan Followup: Dontae Simpson, [Primary Care Provider] - Time spent managing pt's care (in minutes): 40
--- NOTE | 2020-09-27 20:32 | CON ---
Date of Consultation: 09/27/2020 Reason For Consultation: Congestive heart failure, atrial fibrillation with rapid ventricular respon se. History Of Present Illness: Mr. 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 Came in with shortn ess of breath. Chest x-ray showed mild CHF. By the time I saw him, he was improved on IV Lasix. He is supposed to be on Coumadin and insulin at home but has not taken his medication because he ran ou t of his insurance. When he came in, his blood pressure was 163/121. His heart rate was in sinus rh ythm at a rate of 62. Past Medical History: As stated above. Allergies: NONE. Review of Systems: Negative. Social History: Negative. Family History: Noncontributory. Medications: At home are none. Physical Examination: Vital Signs: Heart rate was 62, sinus, blood pressure 163/121. HEENT: Negative. Neck: Supple with no bruit. Chest: Clear. Cardiac: Revealed an S4 gallop. Regular rhythm and rate. Abdomen: Benign. Extremities: Revealed trace edema. Diagnostic Data: As stated earlier. Impression And Plan: Acute on chronic diastolic congestive heart failure, improved, on Lasix. Angelito mcdonald needs to be on beta-rowan or calcium rowan. He needs to be on an MARIBEL inhibitor for control of his diastolic congestive heart failure as well as hypertension. His atrial fibrillation is paroxysm al. Coumadin is reasonable. He is in sinus rhythm now, heart rate is 62. No reason for treating th at otherwise. He has also history of 100% right internal carotid artery stenosis about 2 years ago. He needs to have a carotid Doppler when he gets a chance as an outpatient. I am comfortable with hi m going home whenever it is okay with Dr. Man. I will see him as an outpatient. ADENIKE/LISA Voice ID: [id number] Report ID: [id number]
== END 2020-09-27 15:40 | disposition home or self-care (01) | DRG 308 ==
LOC: ER 13:01 → ERHOLD 16:35 → 2ND 17:11
PROVIDERS: ADMIT Internal Medicine; ATTEND Internal Medicine
DX: I48.0 Paroxysmal atrial fibrillation (principal); I50.33 Acute on chronic diastolic (congestive) heart failure; I11.0 Hypertensive heart disease with heart failure; E11.9 Type 2 diabetes mellitus without complications; Z91.14 Patient's other noncompliance with medication regimen; Z79.84 Long term (current) use of oral hypoglycemic drugs; Z79.899 Other long term (current) drug therapy; Z20.822 Contact with and (suspected) exposure to COVID-19
CPT/HCPCS: 0240U; 36415; 71045; 80048; 80053; 80061; 80076; 81003; 82947; 83735; 83880; 84100; 84443; 84484; 85025; 85610; 87070; 87081; 93005; 94760; 96374; 96375; 99285; J1940